=== PATIENT | male | born 1945 | race Asian ===

== ENCOUNTER 2016-03-31 10:16 | Outpatient (CLI) | payer MEDICARE, OTHER ==
[2016-03-31 13:58] LABS: BASOPHILS % (AUTO) 0.6 %; EOSINOPHILS # (AUTO) 0.1 10^3/uL (0.0-0.7); EOSINOPHILS % (AUTO) 1.9 %; HCT - HEMATOCRIT 41.2 % (42.0-52.0); HGB - HEMOGLOBIN 14.1 g/dL (14.0-18.0); LYMPHOCYTES # (AUTO) 1.2 10^3/uL (1.5-3.5); LYMPHOCYTES % (AUTO) 16.1 %; MEAN CORPUSCULAR HEMOGLOBIN 29.5 pg (27.0-31.0); MEAN CORPUSCULAR HGB CONC 34.1 g/dL (32.0-36.0); MEAN CORPUSCULAR VOLUME 86.6 fL (80.0-94.0); MEAN PLATELET VOLUME 7.8 fL (7.4-11.4); MONOCYTES # (AUTO) 0.7 10^3/uL (0.0-1.0); MONOCYTES % (AUTO) 9.4 %; NEUTROPHILS # (AUTO) 5.4 10^3/uL (1.5-6.6); NUCLEATED RED BLOOD CELLS AUTO 0.1 /100WBC; RED BLOOD COUNT 4.76 10^6/uL (4.70-6.10); RED CELL DISTRIBUTION WIDTH 13.7 % (12.0-15.0); UNCORRECTED WHITE BLOOD COUNT 7.4 x10^3/uL; WHITE BLOOD COUNT 7.4 x10^3/uL (4.8-10.8)
[2016-03-31 14:10] LABS: CALCIUM 9.2 mg/dL (8.5-10.3); POTASSIUM 4.1 mmol/L (3.5-5.0)
[2016-03-31 14:35] LABS: HEMOGLOBIN A1C 0.63 g/dL
[2016-03-31 14:45] LABS: ALBUMIN/GLOBULIN RATIO 1.5 (1.0-2.2); BILIRUBIN,TOTAL 0.7 mg/dL (0.2-1.0); CREATININE 1.7 mg/dL (0.6-1.2); TOTAL PROTEIN 7.6 g/dL (6.7-8.2)
== END 2016-03-31 10:17 | disposition home or self-care (01) ==
LOC: LAB.N 10:16
PROVIDERS: ATTEND Nurse Practitioner Gerontology
DX: N18.3 Chronic kidney disease, stage 3 (moderate) (principal); E11.9 Type 2 diabetes mellitus without complications
CPT/HCPCS: 36415; 80053; 83036; 85025

== ENCOUNTER 2016-06-19 10:18 | Outpatient (CLI) | payer MEDICARE, OTHER | END 2016-06-19 10:19 | disposition home or self-care (01) | DX: G47.33 Obstructive sleep apnea (adult) (pediatric) (principal) | CPT/HCPCS: 99213; G0463 ==

== ENCOUNTER 2016-10-30 08:00 | Outpatient (CLI) | payer MEDICARE, OTHER | END 2016-10-30 08:01 | disposition home or self-care (01) | LOC: LAB.N 08:00 | PROVIDERS: ATTEND Nurse Practitioner Gerontology | DX: Z72.89 Other problems related to lifestyle (principal) | CPT/HCPCS: 36415; 86803 ==

== ENCOUNTER 2016-11-09 14:59 | Emergency (ER) | payer MEDICARE, OTHER ==
[2016-11-09 15:07] VITALS: BP 126/84
[2016-11-09] MEDS ORDERED: LIDOCAINE VISCOUS 2% 15 ML UDC MM STA (15:23)
[2016-11-09] MEDS ORDERED: PHENobarb/HYOSCY/ATROPINE/SCOP 5 ML SYRINGE PO STA (15:23)
[2016-11-09] MEDS ORDERED: MAG HYDROX/AL HYDROX/SIMETH 30 ML UDC PO STA (15:23)
[2016-11-09] MEDS ORDERED: SUCRALFATE 1 GM/10 ML UDC PO STA (15:23)
--- NOTE | 2016-11-09 15:28 | ED Physician Documentation ---
PD HPI ABD PAIN - Stated complaint Stated Complaint: ABD PX - Chief complaint Chief Complaint: Abd Pain - History obtained from History obtained from: Patient, Family - History of Present Illness Timing - onset: How many days ago (3) Timing - duration: Days (3) Timing - details: Waxing and waning Pain level max: 7 Pain level now: 3 Quality: Aching, Pain Location: Epigastric Improved by: Other (States improves and he eats for approximately 15 minutes, then worsens again.) Worsened by: Eating Associated symptoms: Nausea, Diarrhea (Had diarrhea the first day 1. Now normal bowel movements). No: Fever, Vomiting, Hematemesis, Constipation, Melena , Hematochezia Similar symptoms before: Has not had sx before Recently seen: Not recently seen Review of Systems Ten Systems: 10 systems reviewed and negative Constitutional: denies: Fever, Chills Ears: denies: Ear pain Nose: denies: Rhinorrhea / runny nose, Congestion Throat: denies: Sore throat Cardiac: denies: Chest pain / pressure Respiratory: denies: Cough, Wheezing : denies: Dysuria Skin: denies: Rash Musculoskeletal: denies: Neck pain, Back pain Neurologic: denies: Headache PD PAST MEDICAL HISTORY - Past Medical History Cardiovascular: Hypertension Respiratory: None, CPAP use Neuro: None Endocrine/Autoimmune: Type 2 diabetes Musculoskeletal: None Derm: Psoriasis - Past Surgical History Past Surgical History: Yes General: Colonoscopy - Present Medications Home Medications: Ambulatory Orders Medication Instructions Recorded Confirmed Aspirin [Aspir 81] 3 tab PO DAILY 09/26/12 08/31/14 Amlodipine Besylate 5 mg PO DAILY 02/26/13 08/31/14 Atorvastatin Calcium [Lipitor] 20 mg PO HS 02/26/13 08/31/14 Cetirizine HCl [Zyrtec] 10 mg PO PRN 02/26/13 08/31/14 Colchicine [Colcrys] 0.6 mg PO DAILY PRN 02/26/13 08/31/14 Febuxostat [Uloric] 40 mg PO 08/31/14 08/31/14 Omeprazole [PriLOSEC] 20 mg PO DAILY #14 capsule 08/31/14 Ranitidine HCl [Zantac] 150 mg PO 08/31/14 08/31/14 Spironolactone 50 mg PO DAILY 08/31/14 08/31/14 Famotidine [Pepcid] 20 mg PO BID #60 tablet 11/09/16 Omeprazole [PriLOSEC] 20 mg PO DAILY #30 capsule 11/09/16 Sucralfate [Carafate] 1 gm PO ACHS #60 tablet 11/09/16 - Allergies Allergies/Adverse Reactions: Allergies Allergy/AdvReac Type Severity Reaction Status Date / Time felodipine [From Plendil] Allergy Intermediate unknown Verified 11/09/16 15:06 lisinopril Allergy Intermediate unknown Verified 11/09/16 15:06 terazosin HCl * [From Hytrin] Allergy Intermediate unknown Verified 11/09/16 15: 06 - Social History Does the pt smoke?: No Smoking Status: Never smoker Does the pt drink ETOH?: No Does the pt have substance abuse?: No - Immunizations Immunizations are current?: Yes PD ED PE NORMAL - Vitals Vital signs reviewed: Yes - General General: Alert and oriented X 3, No acute distress, Well developed/nourished - HEENT HEENT: Moist mucous membranes - Neck Neck: Supple, no meningeal sign - Cardiac Cardiac: RRR, Strong equal pulses - Respiratory Respiratory: No respiratory distress, Clear bilaterally - Abdomen Abdomen: Soft, Non tender, Non distended - Back Back: No CVA TTP, No spinal TTP - Derm Derm: Warm and dry - Neuro Neuro: Alert and oriented X 3 - Psych Psych: Normal mood, Normal affect Results - Vitals Vitals: Oxygen O2 Source Room air - Labs Labs: Laboratory Tests 11/09/16 11/09/16 15:22 15:22 WBC 9.0 RBC 4.90 Hgb 14.3 Hct 42.8 MCV 87.3 MCH 29.1 MCHC 33.3 RDW 13.9 Plt Count 209 MPV 7.1 L Neut # 6.4 Lymph # 1.4 L Kane # 0.9 Eos # 0.2 Baso # 0.1 Absolute Nucleated RBC 0.00 Nucleated RBCs 0.0 Sodium 136 Potassium 3.9 Chloride 107 Carbon Dioxide 20 L Anion Gap 9.0 BUN 27 H Creatinine 1.7 H Estimated GFR (MDRD) 40 L Glucose 108 H Calcium 9.0 Total Bilirubin 0.8 AST 19 ALT 22 Alkaline Phosphatase 67 Total Protein 7.3 Albumin 4.2 Globulin 3.1 Albumin/Globulin Ratio 1.4 Lipase 47 PD MEDICAL DECISION MAKING - ED course Complexity details: reviewed results, re-evaluated patient, considered differential, d/w patient, d/w family ED course: Patient is a 71-year-old male who appears to have gastritis. Symptoms resolved with GI cocktail. He had been seen for this previously in the emergency department and was placed on a PPI, but stopped taking it. Will restart this. No evidence of gallbladder dysfunction. No acute laboratory abnormalities. Patient and family counseled regarding signs and symptoms for which I believe and urgent re-evaluation would be necessary. Patient with good understanding of and agreement to plan and is comfortable going home at this time This document was made in part using voice recognition software. While efforts are made to proofread this document, sound alike and grammatical errors may occur. Departure - Departure Disposition: 01 Home, Self Care Clinical Impression: Gastritis Qualifiers: Gastritis type: unspecified gastritis Chronicity: acute Gastritis bleeding: without bleeding Qualified Code(s): K29.00 - Acute gastritis without bleeding Condition: Good Instructions: ED Gastritis Follow-Up: Edwige Diaz ARNP [Primary Care Provider] - Within 1 week Prescriptions: Sucralfate [Carafate] 1 gm PO ACHS #60 tablet Famotidine [Pepcid] 20 mg PO BID #60 tablet Omeprazole [PriLOSEC] 20 mg PO DAILY #30 capsule Comments: Return if you worsen. Eat a bland diet. Avoid caffeine, fried foods. This should improve over the next few weeks. Follow-up with your doctor to have an endoscopy scheduled. Discharge Date/Time: 11/09/16 16:33
[2016-11-09 15:31] LABS: BASOPHILS # (AUTO) 0.1 10^3/uL (0.0-0.1); BASOPHILS % (AUTO) 0.7 %; EOSINOPHILS # (AUTO) 0.2 10^3/uL (0.0-0.7); EOSINOPHILS % (AUTO) 2.7 %; HCT - HEMATOCRIT 42.8 % (42.0-52.0); HGB - HEMOGLOBIN 14.3 g/dL (14.0-18.0); LYMPHOCYTES # (AUTO) 1.4 10^3/uL (1.5-3.5); LYMPHOCYTES % (AUTO) 15.3 %; MEAN CORPUSCULAR HEMOGLOBIN 29.1 pg (27.0-31.0); MEAN CORPUSCULAR HGB CONC 33.3 g/dL (32.0-36.0); MEAN CORPUSCULAR VOLUME 87.3 fL (80.0-94.0); MEAN PLATELET VOLUME 7.1 fL (7.4-11.4); MONOCYTES # (AUTO) 0.9 10^3/uL (0.0-1.0); MONOCYTES % (AUTO) 10.6 %; NEUTROPHILS # (AUTO) 6.4 10^3/uL (1.5-6.6); NEUTROPHILS % (AUTO) 70.7 %; RED CELL DISTRIBUTION WIDTH 13.9 % (12.0-15.0)
[2016-11-09] MEDS ORDERED: PHENobarb/HYOSCY/ATROPINE/SCOP 5 ML SYRINGE PO ONE (15:36)
[2016-11-09] MEDS ORDERED: LIDOCAINE VISCOUS 2% 15 ML UDC MM ONE (15:37)
[2016-11-09] MEDS ORDERED: MAG HYDROX/AL HYDROX/SIMETH 30 ML UDC ONE (15:37)
[2016-11-09] MEDS ORDERED: SUCRALFATE 1 GM/10 ML UDC ONE (15:37)
[2016-11-09 15:42] LABS: ALBUMIN/GLOBULIN RATIO 1.4 (1.0-2.2); BILIRUBIN,TOTAL 0.8 mg/dL (0.2-1.0); CREATININE 1.7 mg/dL (0.6-1.2); POTASSIUM 3.9 mmol/L (3.5-5.0); TOTAL PROTEIN 7.3 g/dL (6.7-8.2)
[2016-11-09] MEDS ORDERED: SODIUM CHLORIDE FLUSH 0.9% 10 ML SYRINGE IVP ONE (19:52)
== END 2016-11-09 16:33 | disposition home or self-care (01) ==
LOC: ED 14:59
DX: K29.00 Acute gastritis without bleeding (principal); I10 Essential (primary) hypertension; E11.9 Type 2 diabetes mellitus without complications; Z79.82 Long term (current) use of aspirin
CPT/HCPCS: 36415; 80053; 83690; 85025; 99283; A9270

== ENCOUNTER 2016-12-12 06:20 | Day surgery (SDC) | payer MEDICARE, OTHER ==
[2016-12-12] MEDS ORDERED: LACTATED RINGERS 1,000 ML IV ONE (07:03)
[2016-12-12] MEDS ORDERED: fentaNYL 100 MCG/2 ML VIAL IVP ONE (07:34)
[2016-12-12] MEDS ORDERED: MIDAZOLAM 2 MG/2 ML VIAL IVP ONE (07:34)
[2016-12-12 08:22] VITALS: BP 96/58
== END 2016-12-12 06:21 | disposition home or self-care (01) ==
LOC: SDS 06:20
PROVIDERS: ATTEND Surgery
PROC: 0DBL8ZX Excision of Transverse Colon, Via Natural or Artificial Opening Endoscopic, Diagnostic (ICD-10-PCS; principal; 2016-12-12 07:30)
DX: Z12.11 Encounter for screening for malignant neoplasm of colon (principal); D12.2 Benign neoplasm of ascending colon; D12.3 Benign neoplasm of transverse colon; K57.30 Diverticulosis of large intestine without perforation or abscess without bleeding; E11.9 Type 2 diabetes mellitus without complications; Z80.0 Family history of malignant neoplasm of digestive organs; Z79.82 Long term (current) use of aspirin; E78.1 Pure hyperglyceridemia; L40.9 Psoriasis, unspecified; Z85.46 Personal history of malignant neoplasm of prostate
CPT/HCPCS: 45380; J7120

== ENCOUNTER 2017-03-29 10:25 | Outpatient (CLI) | payer MEDICARE, OTHER ==
--- NOTE | 2017-03-29 18:01 | XRAY Report ---
LEFT HIP AND PELVIS: 03/29/2017 CLINICAL INDICATION: Left hip pain. FINDINGS: Frontal view of the hips and pelvis and frogleg lateral view of the left hip demonstrate moderate left hip osteoarthritis. There is no evidence of acute fracture or dislocation. No radiopaque foreign body is seen in the soft tissues. IMPRESSION: MODERATE LEFT HIP OSTEOARTHRITIS. TD: 03/29/2017 17:50
== END 2017-03-29 10:26 | disposition home or self-care (01) ==
LOC: DI.N 10:25
PROVIDERS: ATTEND Nurse Practitioner Gerontology
DX: M16.12 Unilateral primary osteoarthritis, left hip (principal)

== ENCOUNTER 2017-04-26 07:29 | Outpatient (CLI) | payer MEDICARE, OTHER ==
[2017-04-26 13:13] LABS: BASOPHILS # (AUTO) 0.1 10^3/uL (0.0-0.1); BASOPHILS % (AUTO) 0.6 %; EOSINOPHILS # (AUTO) 0.3 10^3/uL (0.0-0.7); EOSINOPHILS % (AUTO) 2.7 %; LYMPHOCYTES # (AUTO) 1.8 10^3/uL (1.5-3.5); MEAN CORPUSCULAR HEMOGLOBIN 28.9 pg (27.0-31.0); MEAN CORPUSCULAR HGB CONC 33.5 g/dL (32.0-36.0); MEAN CORPUSCULAR VOLUME 86.2 fL (80.0-94.0); MEAN PLATELET VOLUME 7.4 fL (7.4-11.4); MONOCYTES # (AUTO) 0.8 10^3/uL (0.0-1.0); MONOCYTES % (AUTO) 8.1 %; NEUTROPHILS # (AUTO) 6.6 10^3/uL (1.5-6.6); NEUTROPHILS % (AUTO) 69.6 %; PLT - PLATELET COUNT 237 10^3/uL (130-450); RED BLOOD COUNT 4.83 10^6/uL (4.70-6.10); RED CELL DISTRIBUTION WIDTH 13.9 % (12.0-15.0); WHITE BLOOD COUNT 9.5 x10^3/uL (4.8-10.8)
[2017-04-26 13:25] LABS: ALBUMIN 4.2 g/dL (3.2-5.5); ALBUMIN/GLOBULIN RATIO 1.3 (1.0-2.2); ALKALINE PHOSPHATASE 60 IU/L (42-121); ALT ALANINE AMINOTRANSFERASE 30 IU/L (10-60); AST ASPARTATE AMINOTRANSFERASE 26 IU/L (10-42); BILIRUBIN,TOTAL 0.6 mg/dL (0.2-1.0); BUN - BLOOD UREA NITROGEN 29 mg/dL (6-20); CALCIUM 8.9 mg/dL (8.5-10.3); CARBON DIOXIDE - CO2 20 mmol/L (21-32); CHLORIDE 102 mmol/L (101-111); CHOL/HDL RATIO 2.9 (<5.0); CHOLESTEROL 114 mg/dL; GFR - MDRD 33 (>89); GLUCOSE 119 mg/dL (70-100); HDL CHOLESTEROL 39 mg/dL; LDL CHOLESTEROL,CALCULATED 46 mg/dL; LDL/HDL RATIO 1.2 (<3.6); SODIUM 135 mmol/L (135-145); TOTAL PROTEIN 7.4 g/dL (6.7-8.2); VLDL CHOLESTEROL 29 mg/dL
[2017-04-26 13:47] LABS: PLATELET ESTIMATE, MANUAL NORMAL (130-450,000) (NORMAL); PLATELET MORPHOLOGY NORMAL APPEARANCE (NORMAL); RBC MORPHOLOGY (MULTIPLE) NORMAL APPEARANCE (NORMAL)
== END 2017-04-26 07:30 | disposition home or self-care (01) ==
LOC: LAB.N 07:29
PROVIDERS: ATTEND Nurse Practitioner Gerontology
DX: I10 Essential (primary) hypertension (principal); E78.5 Hyperlipidemia, unspecified
CPT/HCPCS: 36415; 80053; 80061; 83721; 85025

== ENCOUNTER 2017-08-13 10:10 | Outpatient (CLI) | payer MEDICARE, OTHER | END 2017-08-13 10:11 | disposition home or self-care (01) | LOC: SC 10:10 | PROVIDERS: ATTEND Internal Medicine Pulmonary Disease | DX: G47.33 Obstructive sleep apnea (adult) (pediatric) (principal) | CPT/HCPCS: 99213; G0463; 99212 ==

== ENCOUNTER 2018-03-04 10:00 | Outpatient (CLI) | payer MEDICARE, OTHER | END 2018-03-04 10:01 | disposition home or self-care (01) | LOC: SC 10:00 | PROVIDERS: ATTEND Internal Medicine Pulmonary Disease | DX: G47.33 Obstructive sleep apnea (adult) (pediatric) (principal) | CPT/HCPCS: 99213; G0463; 99212 ==

== ENCOUNTER 2018-03-07 09:51 | Outpatient (CLI) | payer MEDICARE, OTHER ==
[2018-03-07 13:18] LABS: BASOPHILS % (AUTO) 0.5 %; EOSINOPHILS # (AUTO) 0.2 10^3/uL (0.0-0.7); HGB - HEMOGLOBIN 15.1 g/dL (14.0-18.0); LYMPHOCYTES # (AUTO) 1.1 10^3/uL (1.5-3.5); LYMPHOCYTES % (AUTO) 14.1 %; MEAN CORPUSCULAR HEMOGLOBIN 29.7 pg (27.0-31.0); MEAN CORPUSCULAR HGB CONC 33.9 g/dL (32.0-36.0); MEAN CORPUSCULAR VOLUME 87.4 fL (80.0-94.0); MEAN PLATELET VOLUME 7.2 fL (7.4-11.4); MONOCYTES # (AUTO) 0.7 10^3/uL (0.0-1.0); MONOCYTES % (AUTO) 8.6 %; NEUTROPHILS % (AUTO) 74.8 %; PLT - PLATELET COUNT 226 10^3/uL (130-450); RED BLOOD COUNT 5.07 10^6/uL (4.70-6.10); RED CELL DISTRIBUTION WIDTH 13.8 % (12.0-15.0); WHITE BLOOD COUNT 8.1 x10^3/uL (4.8-10.8)
[2018-03-07 13:30] LABS: ALBUMIN 3.6 g/dL (3.2-5.5); ALBUMIN/GLOBULIN RATIO 1.4 (1.0-2.2); ALKALINE PHOSPHATASE 64 IU/L (42-121); ALT ALANINE AMINOTRANSFERASE 31 IU/L (10-60); AST ASPARTATE AMINOTRANSFERASE 21 IU/L (10-42); BILIRUBIN,TOTAL 0.6 mg/dL (0.2-1.0); BUN - BLOOD UREA NITROGEN 12 mg/dL (6-20); CALCIUM 8.9 mg/dL (8.5-10.3); CARBON DIOXIDE - CO2 20 mmol/L (21-32); CHLORIDE 106 mmol/L (101-111); CHOL/HDL RATIO 3.9 (<5.0); CHOLESTEROL 104 mg/dL; CREATININE 1.8 mg/dL (0.6-1.2); GFR - MDRD 37 (>89); GLUCOSE 112 mg/dL (70-100); HDL CHOLESTEROL 27 mg/dL; LDL CHOLESTEROL,CALCULATED 51 mg/dL; LDL/HDL RATIO 1.9 (<3.6); SODIUM 134 mmol/L (135-145); TOTAL PROTEIN 6.1 g/dL (6.7-8.2); VLDL CHOLESTEROL 26 mg/dL
[2018-03-07 13:39] LABS: HB2 TOTAL 16.3 g/dL; HEMOGLOBIN A1C 0.67 g/dL; HEMOGLOBIN A1C % 5.9 % (4.6-6.2)
[2018-03-07 13:58] LABS: PLATELET ESTIMATE, MANUAL NORMAL (130-450,000) (NORMAL); PLATELET MORPHOLOGY 1+ LARGE PLATELETS (NORMAL); RBC MORPHOLOGY (MULTIPLE) NORMAL APPEARANCE (NORMAL)
== END 2018-03-07 23:59 | disposition home or self-care (01) ==
LOC: LAB.N 09:51
PROVIDERS: ATTEND Nurse Practitioner Gerontology
DX: I10 Essential (primary) hypertension (principal); E78.1 Pure hyperglyceridemia; E11.9 Type 2 diabetes mellitus without complications; E78.5 Hyperlipidemia, unspecified
CPT/HCPCS: 36415; 80053; 80061; 83036; 83721; 85025

== ENCOUNTER 2018-08-14 08:00 | Outpatient (CLI) | payer MEDICARE, OTHER ==
[2018-08-14 12:54] LABS: BILIRUBIN,URINE NEGATIVE (NEGATIVE); GLUCOSE, URINE (UA) NEGATIVE (NEGATIVE); KETONES,URINE (UA) NEGATIVE (NEGATIVE); LEUKOCYTE ESTERASE, URINE NEGATIVE (NEGATIVE); NITRITE,URINE NEGATIVE (NEGATIVE); OCCULT BLOOD,URINE NEGATIVE (NEGATIVE); PH,URINE 5.5 PH (5.0-7.5); PROTEIN,URINE NEGATIVE (NEGATIVE); UROBILINOGEN,URINE 0.2 (NORMAL) E.U./dL (NORMAL)
[2018-08-14 13:13] LABS: BACTERIA,URINE Rare /HPF (None Seen); CLARITY,URINE CLEAR (CLEAR); RBC,URINE 0-5 /HPF (0-5); SQUAMOUS EPITHELIAL CELL,UR RARE Squamous (<= Few)
[2018-08-14 13:29] LABS: HB2 TOTAL 13.7 g/dL; HEMOGLOBIN A1C 0.56 g/dL; HEMOGLOBIN A1C % 5.9 % (4.6-6.2)
[2018-08-14 13:35] LABS: ALBUMIN 3.9 g/dL (3.2-5.5); ALBUMIN/GLOBULIN RATIO 1.2 (1.0-2.2); BILIRUBIN,TOTAL 0.9 mg/dL (0.2-1.0); CALCIUM 8.8 mg/dL (8.5-10.3); CREATININE 1.7 mg/dL (0.6-1.2); TOTAL PROTEIN 7.1 g/dL (6.7-8.2); URIC ACID 5.1 mg/dL (2.6-7.2)
== END 2018-08-14 23:59 | disposition home or self-care (01) ==
LOC: LAB.WCP 08:00
PROVIDERS: ATTEND Family Medicine
DX: E11.22 Type 2 diabetes mellitus with diabetic chronic kidney disease (principal); N18.3 Chronic kidney disease, stage 3 (moderate); M41.85 Other forms of scoliosis, thoracolumbar region; M25.78 Osteophyte, vertebrae
CPT/HCPCS: 36415; 72100; 80053; 81001; 83036; 84550

== ENCOUNTER 2018-08-14 10:47 | Outpatient (CLI) | payer MEDICARE, OTHER ==
--- NOTE | 2018-08-14 11:53 | XRAY Report ---
Reason: BACK PAIN Procedure Date: 08/14/2018 Accession Number: [id number] / [id number] Procedure: XRN - Lumbar Spine 2 View CPT Code: FULL RESULT: EXAM: LUMBOSACRAL SPINE RADIOGRAPHY EXAM DATE: 08/14/2018 11:02 AM. CLINICAL HISTORY: Lower back pain for 2 weeks. COMPARISONS: None. TECHNIQUE: 3 views. FINDINGS: Lateral views are degraded by motion and underpenetration. Alignment: There is a minimal S-shaped thoracolumbar scoliosis in the form of a dextroconvex thoracolumbar curvature centered about T12-L1 followed by levoconvex curvature centered about L3-L4. No listhesis is seen. Bones: Five [id number] lumbar vertebral bodies are present. No fractures or bone lesions. Disks: Marginal osteophytosis is seen without significant loss of joint space height. Facets: There is lower lumbar spine facet arthropathy which is poorly visualized due to motion. Sacroiliac Joints: Unremarkable. Soft Tissues: Normal. The visualized bowel gas pattern is normal. IMPRESSION: Degenerative changes including scoliosis as described. RADIA
== END 2018-08-14 10:48 | disposition home or self-care (01) ==
LOC: DI.N 10:47
PROVIDERS: ATTEND Family Medicine
DX: M41.85 Other forms of scoliosis, thoracolumbar region (principal); M25.78 Osteophyte, vertebrae
CPT/HCPCS: 72100

== ENCOUNTER 2018-12-10 10:50 | Outpatient (CLI) | payer MEDICARE, OTHER ==
[2018-12-10 20:40] LABS: CALCIUM 8.7 mg/dL (8.5-10.3); CREATININE 1.6 mg/dL (0.6-1.2)
== END 2018-12-10 23:59 | disposition home or self-care (01) ==
LOC: LAB.N 10:50
PROVIDERS: ATTEND Nurse Practitioner Gerontology
DX: R94.4 Abnormal results of kidney function studies (principal)
CPT/HCPCS: 36415; 80048

== ENCOUNTER 2019-01-14 08:11 | Outpatient (CLI) | payer MEDICARE, OTHER | END 2019-01-14 23:59 | disposition home or self-care (01) | LOC: LAB.N 08:11 | PROVIDERS: ATTEND Urology | DX: C61 Malignant neoplasm of prostate (principal) | CPT/HCPCS: 36415; 84153 ==

== ENCOUNTER 2019-03-21 08:12 | Outpatient (CLI) | payer MEDICARE, OTHER | END 2019-03-21 08:13 | disposition home or self-care (01) | LOC: LAB.N 08:12 | PROVIDERS: ATTEND Nurse Practitioner Gerontology | DX: R94.4 Abnormal results of kidney function studies (principal) | CPT/HCPCS: 36415; 80048 ==

== ENCOUNTER 2019-03-25 08:53 | Outpatient (CLI) | payer MEDICARE, OTHER ==
--- NOTE | 2019-03-25 09:42 | SLEEP CARE CONSULTATION ---
Information from patient questionnaire entered by Cristela Manning. I have reviewed and concur with the information entered by Cristela Manning. This document represents the service I personally performed and the decisions made by me, Quincy Calle MD, [facility]. History of Present Illness Previous diagnosis: Severe, Obstructive Sleep Apnea-Hypopnea Syndrome AHI: 45.4 Reason for follow up: annual Equipment type: CPAP Equipment obtained from: [employer] Prior sleep studies: Yes Year and Where: 2012 [facility] HPI additional information: HPI: Mr. Iqbal was diagnosed to have severe obstructive sleep apnea-hypopnea syndrome and returns today for annual follow up of CPAP therapy. The patient gets his supplies from [employer] and was fitted with a Respironics DreamWear nasal cushion mask. He complains of not getting anything from the durable medical supplier for the past several months. He continues to use the device nightly and all through the night. The compliance report shows that he uses the device 179 nights out of the past 180 nights, averaging 6.2 hours a night. The > 4 hour compliance rate for the past 30 days is 99.4%. He complains of no particular problem with the device such as soreness on the face, dry nose, epistaxis, nasal congestion or headache. He thinks that the pressure of 6 - 9 cmH2O is comfortable. On the CPAP therapy he notices improvement in his sleep quality, and that he wakes up feeling fresher in the morning and more awake/alert during the day. [place] Sleepiness Scale score is 4. His notices no snore at all. The average residual AHI is 2.1; and large leak, 5 seconds a night. CPAP Compliance Data - Data Reviewed with Patient Average duration of nightly device use: 6h 10m Compliance rate %: 93.9 Current pressure setting (cmH2O): 6-9 Humidity setting: off Heated hose setting: off Average residual AHI: 2.1 Average large leak: 5s Subjective Initial [place] Sleepiness Scale score: 5 Current [place] Sleepiness Scale score: 4 Allergies and Home Medications Drug allergies reviewed: Yes (NSAIDS, Colchicine, Lisinopril, Hydrochlorothiazide) Home medication list reviewed: Yes (spironolacton, Flomax, Uloric, Zantac, Lipitor, Zyrtec, losartan, and aspir) Review of Systems Review of systems same as previous: Yes Physical Exam Height: 5 ft 4 in Weight: 209 lb Body Mass Index: 35.9 BMI Classification: Obesity Class 2 Impression and Plan IMPRESSION: 1. Obstructive Sleep Apnea-Hypopnea Syndrome, severe, with the patient continuing to do well on nasal CPAP therapy. He has excellent compliance and significant clinical benefits. The current pressure appears effective and comfortable. Overall, he is very satisfied with treatment and plans to continue with it long-term. Because he is not getting supplies from [employer], I will have him switch to a different durable medical supplier. PLAN: 1. Prescription made for supplies so that he may switch durable medical supplier. 2. Try to lose weight 3. Try ResMed N30i mask. Return for follow up in a year or earlier if there is any problem. I spent 100% of this visit face to face with the patient with greater than 50% of this was spent time counseling the patient and coordination of care.
== END 2019-03-25 08:54 ==
LOC: SC 08:53
PROVIDERS: ATTEND Internal Medicine Pulmonary Disease
DX: G47.33 Obstructive sleep apnea (adult) (pediatric) (principal); E66.9 Obesity, unspecified; Z68.35 Body mass index [BMI] 35.0-35.9, adult
CPT/HCPCS: 99213; G0463; 99212

== ENCOUNTER 2019-07-25 09:10 | Outpatient (CLI) | payer MEDICARE, OTHER ==
[2019-07-25 11:48] LABS: BASOPHILS # (AUTO) 0.1 10^3/uL (0.0-0.1); BASOPHILS % (AUTO) 0.7 %; EOSINOPHILS # (AUTO) 0.1 10^3/uL (0.0-0.7); EOSINOPHILS % (AUTO) 1.4 %; HGB - HEMOGLOBIN 14.2 g/dL (14.0-18.0); MEAN CORPUSCULAR HGB CONC 32.1 g/dL (32.0-36.0); MEAN CORPUSCULAR VOLUME 90.4 fL (80.0-94.0); MEAN PLATELET VOLUME 9.2 fL (7.4-11.4); MONOCYTES # (AUTO) 0.7 10^3/uL (0.0-1.0); MONOCYTES % (AUTO) 7.8 %; NEUTROPHILS # (AUTO) 6.5 10^3/uL (1.5-6.6); NEUTROPHILS % (AUTO) 76.8 %; PLT - PLATELET COUNT 205 10^3/uL (130-450); RED BLOOD COUNT 4.89 10^6/uL (4.70-6.10); RED CELL DISTRIBUTION WIDTH 12.9 % (12.0-15.0); WHITE BLOOD COUNT 8.5 x10^3/uL (4.8-10.8)
[2019-07-25 12:14] LABS: ALBUMIN 4.1 g/dL (3.2-5.5); ALBUMIN/GLOBULIN RATIO 1.3 (1.0-2.2); ALKALINE PHOSPHATASE 61 IU/L (42-121); ALT ALANINE AMINOTRANSFERASE 23 IU/L (10-60); AST ASPARTATE AMINOTRANSFERASE 23 IU/L (10-42); BILIRUBIN,TOTAL 0.8 mg/dL (0.2-1.0); BUN - BLOOD UREA NITROGEN 38 mg/dL (6-20); CALCIUM 8.7 mg/dL (8.5-10.3); CARBON DIOXIDE - CO2 19 mmol/L (21-32); CHLORIDE 108 mmol/L (101-111); CHOL/HDL RATIO 3.3 (<5.0); CHOLESTEROL 140 mg/dL; CREATININE 1.9 mg/dL (0.6-1.2); GLUCOSE 116 mg/dL (70-100); HDL CHOLESTEROL 42 mg/dL; LDL CHOLESTEROL,CALCULATED 70 mg/dL; LDL/HDL RATIO 1.7 (<3.6); SODIUM 136 mmol/L (135-145); TOTAL PROTEIN 7.2 g/dL (6.7-8.2); VLDL CHOLESTEROL 28 mg/dL
[2019-07-25 12:20] LABS: HB2 TOTAL 15.3 g/dL; HEMOGLOBIN A1C 0.6 g/dL; HEMOGLOBIN A1C % 5.7 % (4.6-6.2)
== END 2019-07-25 23:59 | disposition home or self-care (01) ==
LOC: LAB.WCP 09:10
PROVIDERS: ATTEND Nurse Practitioner Family
DX: R94.4 Abnormal results of kidney function studies (principal); E78.5 Hyperlipidemia, unspecified; E11.9 Type 2 diabetes mellitus without complications; I10 Essential (primary) hypertension
CPT/HCPCS: 36415; 80053; 80061; 83036; 83721; 85025

== ENCOUNTER 2019-08-06 08:00 | Outpatient (CLI) | payer MEDICARE, OTHER | END 2019-08-06 23:59 | disposition home or self-care (01) | LOC: LAB.WCP 08:00 | PROVIDERS: ATTEND Urology | DX: C61 Malignant neoplasm of prostate (principal) | CPT/HCPCS: 36415; 84153 ==

== ENCOUNTER 2019-09-04 09:34 | Outpatient (CLI) | payer MEDICARE, OTHER | END 2019-09-04 23:59 | disposition home or self-care (01) | LOC: LAB.WCP 09:34 | PROVIDERS: ATTEND Urology | DX: C61 Malignant neoplasm of prostate (principal) | CPT/HCPCS: 36415; 84153 ==

== ENCOUNTER 2019-10-21 08:00 | Outpatient (CLI) | payer MEDICARE, OTHER ==
[2019-10-21 18:48] LABS: AMYLASE 82 U/L (28-100); LIPASE 52 U/L (22-51)
== END 2019-10-21 23:59 | disposition home or self-care (01) ==
LOC: LAB.WCP 08:00
PROVIDERS: ATTEND Nurse Practitioner Family
DX: R10.9 Unspecified abdominal pain (principal)
CPT/HCPCS: 36415; 82150; 83690

== ENCOUNTER 2020-02-17 07:07 | Outpatient (CLI) | payer MEDICARE, OTHER ==
[2020-02-17 13:28] LABS: HEMOGLOBIN A1c% 5.9 % (4.27-6.07)
[2020-02-17 14:08] LABS: CALCIUM 9.4 mg/dL (8.5-10.3); CREATININE 1.8 mg/dL (0.6-1.2)
== END 2020-02-17 07:08 | disposition home or self-care (01) ==
LOC: DI.N 07:07 → LAB.N 07:08
PROVIDERS: ATTEND Nurse Practitioner Family
DX: E11.22 Type 2 diabetes mellitus with diabetic chronic kidney disease (principal); N18.30 Chronic kidney disease, stage 3 unspecified
CPT/HCPCS: 36415; 80048; 83036

== ENCOUNTER 2020-07-07 08:00 | Outpatient (CLI) | payer MEDICARE, OTHER ==
[2020-07-07 12:07] LABS: BASOPHILS # (AUTO) 0.1 10^3/uL (0.0-0.1); BASOPHILS % (AUTO) 0.6 %; EOSINOPHILS # (AUTO) 0.1 10^3/uL (0.0-0.7); EOSINOPHILS % (AUTO) 1.5 %; HCT - HEMATOCRIT 44.6 % (42.0-52.0); HGB - HEMOGLOBIN 14.1 g/dL (14.0-18.0); LYMPHOCYTES # (AUTO) 1.1 10^3/uL (1.5-3.5); LYMPHOCYTES % (AUTO) 14.3 %; MEAN CORPUSCULAR HEMOGLOBIN 28.9 pg (27.0-31.0); MEAN CORPUSCULAR HGB CONC 31.6 g/dL (32.0-36.0); MEAN CORPUSCULAR VOLUME 91.4 fL (80.0-94.0); MEAN PLATELET VOLUME 8.9 fL (7.4-11.4); MONOCYTES # (AUTO) 0.6 10^3/uL (0.0-1.0); MONOCYTES % (AUTO) 7.5 %; NEUTROPHILS % (AUTO) 74.6 %; PLT - PLATELET COUNT 209 10^3/uL (130-450); RED BLOOD COUNT 4.88 10^6/uL (4.70-6.10); RED CELL DISTRIBUTION WIDTH 13.2 % (12.0-15.0)
[2020-07-07 12:52] LABS: THYROID STIMULATING HORMONE 2.97 uIU/mL (0.34-5.60)
[2020-07-07 13:00] LABS: ALBUMIN 4.3 g/dL (3.2-5.5); ALBUMIN/GLOBULIN RATIO 1.3 (1.0-2.2); ALKALINE PHOSPHATASE 65 IU/L (42-121); ALT ALANINE AMINOTRANSFERASE 24 IU/L (10-60); AST ASPARTATE AMINOTRANSFERASE 19 IU/L (10-42); BILIRUBIN,TOTAL 0.9 mg/dL (0.2-1.0); BUN - BLOOD UREA NITROGEN 29 mg/dL (6-20); CALCIUM 9.2 mg/dL (8.5-10.3); CARBON DIOXIDE - CO2 22 mmol/L (21-32); CHLORIDE 106 mmol/L (101-111); CHOL/HDL RATIO 3.6 (<5.0); CHOLESTEROL 151 mg/dL; CREATININE 1.7 mg/dL (0.6-1.2); CREATININE,URINE 300.4 mg/dL; GFR - MDRD 39 (>89); GLUCOSE 113 mg/dL (70-100); HDL CHOLESTEROL 42 mg/dL; LDL CHOLESTEROL,CALCULATED 70 mg/dL; LDL/HDL RATIO 1.7 (<3.6); MICROALBUM/CREATININE RATIO,UR 1.3 ug/mg (<30.0); MICROALBUMIN,URINE 0.4 mg/dL (0-300.0); POTASSIUM 4.2 mmol/L (3.5-5.0); SODIUM 137 mmol/L (135-145); TOTAL PROTEIN 7.5 g/dL (6.7-8.2); TRIGLYCERIDES 194 mg/dL; VLDL CHOLESTEROL 39 mg/dL
[2020-07-07 13:47] LABS: ESTIMATED AVERAGE GLUCOSE 131 mg/dL (70-100); HEMOGLOBIN A1c% 6.2 % (4.27-6.07)
== END 2020-07-07 23:59 | disposition home or self-care (01) ==
LOC: LAB.WCP 08:00
PROVIDERS: ATTEND Family Medicine
DX: E11.22 Type 2 diabetes mellitus with diabetic chronic kidney disease (principal); N18.30 Chronic kidney disease, stage 3 unspecified; C61 Malignant neoplasm of prostate
CPT/HCPCS: 36415; 80053; 80061; 82043; 82570; 83036; 83721; 84153; 84443; 85025

== ENCOUNTER 2020-08-20 07:00 | Outpatient (CLI) | payer MEDICARE, OTHER | END 2020-08-20 23:59 | disposition home or self-care (01) | LOC: COV 07:00 | PROVIDERS: ATTEND Physician Assistant | DX: Z01.812 Encounter for preprocedural laboratory examination (principal); Z20.822 Contact with and (suspected) exposure to COVID-19 ==

== ENCOUNTER 2020-10-11 09:41 | Outpatient (CLI) | payer MEDICARE, OTHER ==
--- NOTE | 2020-10-11 10:38 | SLEEP CARE CONSULTATION ---
Information from patient questionnaire entered by Jazmín Caro. I have reviewed and concur with the information entered by Jazmín Caro. This document represents the service I personally performed and the decisions made by me, Quincy Calle MD, [facility]. History of Present Illness Service Date and Time: 10/11/2020 0941 Previous diagnosis: Severe, Obstructive Sleep Apnea-Hypopnea Syndrome AHI: 45.4 (in 2012) Reason for follow up: annual (last seen 03/2019) Equipment type: CPAP Equipment obtained from: [employer] Mask style: Nasal Mask brand: Respironics (Dreamwear) Prior sleep studies: Yes Year and Where: 2013 - [facility] Type of Sleep Study: Polysomnography HPI additional information: HPI: Mr. Iqbal was diagnosed to have severe obstructive sleep apnea-hypopnea syndrome and returns today for annual follow up of CPAP therapy. The patient gets his supplies from [employer] and was fitted with a Respironics DreamWear nasal cushion mask. He continues to use the device nightly and all through the night. The compliance report shows that he uses the device 177 nights out of the past 180 nights, averaging 5.3 hours a night. The > 4 hour compliance rate for the past 180 days is 75.6%. He complains of no particular problem with the device such as soreness on the face, dry nose, epistaxis, nasal congestion or headache. He thinks that the pressure of 6 - 9 cmH2O is comfortable. On the CPAP therapy he notices improvement in his sleep quality, and that he wakes up feeling fresher in the morning and more awake/alert during the day. [place] Sleepiness Scale score is 2. His notices no snore at all. The average residual AHI is 2.1; and large leak, 24 seconds a night. CPAP Compliance Data - Data Reviewed with Patient Average duration of nightly device use: 5 hr 19 min Compliance rate %: 75.6 (180 days) Current pressure setting (cmH2O): 6-9 Humidity settin Heated hose settin Average residual AHI: 2.1 Average large leak: 24 sec Subjective Initial [place] Sleepiness Scale score: 16 (in 2007) Current [place] Sleepiness Scale score: 2 Allergies and Home Medications Drug allergies reviewed: Yes Home medication list reviewed: Yes Review of Systems Review of systems same as previous: Yes Physical Exam Height: 5 ft 4 in Weight: 210 lb Body Mass Index: 36.0 BMI Classification: Obese Impression and Plan IMPRESSION: 1. Obstructive Sleep Apnea-Hypopnea Syndrome, severe, with the patient continuing to do well on nasal CPAP therapy. He has excellent compliance and significant clinical benefits. The current pressure appears effective and comfortable. Overall, he is very satisfied with treatment and plans to continue with it long-term. In regards to the recall on all [employer] devices, we discussed the risks and benefits of stopping versus continuing to use the device . In severe cases, it appears the benefits outweigh the risks and it is reasonable to continue until the replace part or machine becomes available. Symptoms that could be related to the recalled sound abatement foam piece are headache, nausea, chest tightness, and upper airway irritation. The patients should also look for debris in the air outlet, water reservoir, and hose. If found, the device should not be used. In [id number] cases, the patients should refrain from using the device. The patient should register the device on [employer]/SRC-update. PLAN: 1. The patient will continue to use his CPAP while waiting for replacement because he cannot sleep without it.. 2. Try to lose weight 3. Try ResMed N30i mask. 4. Return for follow up in a year or earlier if there is any problem. Counseling Topics: Weight control Follow up with Sleep Care in: 1 year Visit Type: In Office Provider Statement: I spent 100% of the Face to Face Visit with the patient with greater than 50% spent counseling the patient and coordination of care.
== END 2020-10-11 09:42 | disposition home or self-care (01) ==
LOC: SC 09:41
PROVIDERS: ATTEND Internal Medicine Pulmonary Disease
DX: G47.33 Obstructive sleep apnea (adult) (pediatric) (principal); E66.9 Obesity, unspecified; Z68.36 Body mass index [BMI] 36.0-36.9, adult
CPT/HCPCS: 99213; G0463; 99212

== ENCOUNTER 2020-10-22 16:34 | Outpatient (CLI) | payer MEDICARE, OTHER | END 2020-10-22 16:35 | disposition home or self-care (01) | LOC: COV 16:34 | PROVIDERS: ATTEND Physician Assistant | DX: Z01.812 Encounter for preprocedural laboratory examination (principal); Z20.822 Contact with and (suspected) exposure to COVID-19 ==

== ENCOUNTER 2020-12-27 08:00 | Outpatient (CLI) | payer MEDICARE, OTHER | END 2020-12-27 23:59 | disposition home or self-care (01) | LOC: LAB.WCP 08:00 | PROVIDERS: ATTEND Family Medicine | DX: M10.9 Gout, unspecified (principal) | CPT/HCPCS: 36415; 84550 ==

== ENCOUNTER 2021-01-03 08:00 | Outpatient (CLI) | payer MEDICARE, OTHER ==
[2021-01-03 12:16] LABS: BASOPHILS % (AUTO) 0.4 %; EOSINOPHILS # (AUTO) 0.2 10^3/uL (0.0-0.7); EOSINOPHILS % (AUTO) 2.2 %; HCT - HEMATOCRIT 41.2 % (42.0-52.0); HGB - HEMOGLOBIN 13.4 g/dL (14.0-18.0); LYMPHOCYTES # (AUTO) 1.1 10^3/uL (1.5-3.5); LYMPHOCYTES % (AUTO) 16.5 %; MEAN CORPUSCULAR HEMOGLOBIN 29.6 pg (27.0-31.0); MEAN CORPUSCULAR HGB CONC 32.5 g/dL (32.0-36.0); MEAN CORPUSCULAR VOLUME 91.2 fL (80.0-94.0); MEAN PLATELET VOLUME 9.3 fL (7.4-11.4); MONOCYTES # (AUTO) 0.6 10^3/uL (0.0-1.0); MONOCYTES % (AUTO) 8.6 %; NEUTROPHILS # (AUTO) 4.8 10^3/uL (1.5-6.6); NEUTROPHILS % (AUTO) 71.4 %; PLT - PLATELET COUNT 206 10^3/uL (130-450); RED BLOOD COUNT 4.52 10^6/uL (4.70-6.10); RED CELL DISTRIBUTION WIDTH 13.3 % (12.0-15.0); WHITE BLOOD COUNT 6.7 x10^3/uL (4.8-10.8)
[2021-01-03 12:27] LABS: ALBUMIN 4.2 g/dL (3.2-5.5); ALBUMIN/GLOBULIN RATIO 1.3 (1.0-2.2); BILIRUBIN,TOTAL 0.5 mg/dL (0.2-1.0); CALCIUM 9.7 mg/dL (8.5-10.3); CREATININE 1.8 mg/dL (0.6-1.2); POTASSIUM 4.3 mmol/L (3.5-5.0); TOTAL PROTEIN 7.5 g/dL (6.7-8.2)
[2021-01-03 12:38] LABS: ESTIMATED AVERAGE GLUCOSE 134 mg/dL (70-100); HEMOGLOBIN A1c% 6.3 % (4.27-6.07)
== END 2021-01-03 23:59 | disposition home or self-care (01) ==
LOC: LAB.WCP 08:00
PROVIDERS: ATTEND Family Medicine
DX: E11.9 Type 2 diabetes mellitus without complications (principal)
CPT/HCPCS: 36415; 80053; 83036; 85025

== ENCOUNTER 2021-05-20 07:10 | Outpatient (CLI) | payer MEDICARE, OTHER ==
[2021-05-20 11:52] LABS: BASOPHILS % (AUTO) 0.6 %; EOSINOPHILS # (AUTO) 0.2 10^3/uL (0.0-0.7); EOSINOPHILS % (AUTO) 2.7 %; HCT - HEMATOCRIT 37.8 % (42.0-52.0); HGB - HEMOGLOBIN 12.6 g/dL (14.0-18.0); LYMPHOCYTES # (AUTO) 0.8 10^3/uL (1.5-3.5); MEAN CORPUSCULAR HEMOGLOBIN 31.2 pg (27.0-31.0); MEAN CORPUSCULAR HGB CONC 33.3 g/dL (32.0-36.0); MEAN CORPUSCULAR VOLUME 93.6 fL (80.0-94.0); MONOCYTES # (AUTO) 0.8 10^3/uL (0.0-1.0); MONOCYTES % (AUTO) 11.7 %; NEUTROPHILS # (AUTO) 4.6 10^3/uL (1.5-6.6); NEUTROPHILS % (AUTO) 71.1 %; PLT - PLATELET COUNT 167 10^3/uL (130-450); RED BLOOD COUNT 4.04 10^6/uL (4.70-6.10); RED CELL DISTRIBUTION WIDTH 12.5 % (12.0-15.0); WHITE BLOOD COUNT 6.4 x10^3/uL (4.8-10.8)
[2021-05-20 12:12] LABS: ESTIMATED AVERAGE GLUCOSE 128 mg/dL (70-100); HEMOGLOBIN A1c% 6.1 % (4.27-6.07)
[2021-05-20 12:27] LABS: ALBUMIN/GLOBULIN RATIO 1.3 (1.0-2.2); ALKALINE PHOSPHATASE 61 IU/L (42-121); ALT ALANINE AMINOTRANSFERASE 20 IU/L (10-60); AST ASPARTATE AMINOTRANSFERASE 19 IU/L (10-42); BILIRUBIN,TOTAL 0.6 mg/dL (0.2-1.0); BUN - BLOOD UREA NITROGEN 34 mg/dL (6-20); CALCIUM 9.3 mg/dL (8.5-10.3); CARBON DIOXIDE - CO2 19 mmol/L (21-32); CHLORIDE 106 mmol/L (101-111); CHOL/HDL RATIO 3.8 (<5.0); CHOLESTEROL 143 mg/dL; CREATININE 1.6 mg/dL (0.6-1.2); GFR - MDRD 42 (>89); GLUCOSE 131 mg/dL (70-100); HDL CHOLESTEROL 38 mg/dL; LDL CHOLESTEROL,CALCULATED 60 mg/dL; LDL/HDL RATIO 1.6 (<3.6); POTASSIUM 4.1 mmol/L (3.5-5.0); SODIUM 136 mmol/L (135-145); TOTAL PROTEIN 7.1 g/dL (6.7-8.2); TRIGLYCERIDES 223 mg/dL; VLDL CHOLESTEROL 45 mg/dL
== END 2021-05-20 07:11 | disposition home or self-care (01) ==
LOC: LAB.N 07:10
PROVIDERS: ATTEND Family Medicine
DX: E11.9 Type 2 diabetes mellitus without complications (principal); R06.09 Other forms of dyspnea
CPT/HCPCS: 36415; 80053; 80061; 83036; 83721; 83880; 85025

== ENCOUNTER 2021-05-20 07:18 | Outpatient (CLI) | payer MEDICARE, OTHER ==
--- NOTE | 2021-05-20 08:16 | XRAY Report ---
PROCEDURE: Chest 2 View X-Ray INDICATIONS: DYSPNEA ON EXERTION TECHNIQUE: 2 view(s) of the chest. COMPARISON: 09/26/2012 chest radiograph FINDINGS: Surgical changes and devices: None. Lungs and pleura: No pleural effusions or pneumothorax. Lungs are clear. Mediastinum: Mediastinal contours are normal. Heart size is normal. Bones and chest wall: No suspicious bony abnormalities. Soft tissues appear unremarkable. IMPRESSION: No acute cardiopulmonary process demonstrated radiographically. Reviewed by: Ammon Morales MD on 05/20/2021 8:15 AM PDT Approved by: Ammon Morales MD on 05/20/2021 8:15 AM PDT Station ID: [id number]
--- NOTE | 2021-05-20 09:08 | XRAY Report ---
PROCEDURE: Lumbar Spine 2 View INDICATIONS: BACK PAIN, LUMBAR; PROSTATE CANCER TECHNIQUE: 3 views of the lumbar spine were acquired. COMPARISON: None. FINDINGS: Bones: 5 [id number] vertebrae are present. There is normal bony alignment. Degenerative endpl ate changes, loss of disc height and bilateral facet arthrosis throughout lumbar spine is seen more p rominent at L4-5 and L5-S1 levels. No vertebral body compression fractures. No suspicious bony lesio ns. Soft tissues: Overlying bowel gas pattern is normal. No suspicious soft tissue calcifications. IMPRESSION: Degenerative disc disease throughout lumbar spine. No acute compression fracture or spon dylolisthesis. No gross suspicious bony lesion. Reviewed by: Mehul Dillard MD on 05/20/2021 9:06 AM PDT Approved by: Mehul Dillard MD on 05/20/2021 9:06 AM PDT Station ID: [id number]
== END 2021-05-20 07:19 | disposition home or self-care (01) ==
LOC: DI.N 07:18
PROVIDERS: ATTEND Family Medicine
DX: R06.09 Other forms of dyspnea (principal); C61 Malignant neoplasm of prostate; M47.816 Spondylosis without myelopathy or radiculopathy, lumbar region; M47.817 Spondylosis without myelopathy or radiculopathy, lumbosacral region; M51.36 Other intervertebral disc degeneration, lumbar region; M51.37 Other intervertebral disc degeneration, lumbosacral region; E11.9 Type 2 diabetes mellitus without complications
CPT/HCPCS: 36415; 80053; 80061; 83036; 83721; 83880; 85025

== ENCOUNTER 2021-10-31 10:28 | Outpatient (CLI) | payer MEDICARE, OTHER ==
[2021-10-31 11:11] VITALS: BP 146/90
--- NOTE | 2021-10-31 11:11 | SLEEP CARE CONSULTATION ---
Information from patient questionnaire entered by Gina Javier. I have reviewed and concur with the information entered by Gina Javier. This document represents the service I personally performed and the decisions made by me, Quincy Calle MD, [facility]. History of Present Illness Service Date and Time: 10/31/2021 1028 Previous diagnosis: Severe, Obstructive Sleep Apnea-Hypopnea Syndrome AHI: 45.4 (in 2012) Reason for follow up: annual (LAST SEEN 10/09) Equipment type: CPAP (DREAMSTATION) Equipment obtained from: [employer] Mask style: Nasal Prior sleep studies: Yes Year and Where: 2012 - [facility] Type of Sleep Study: Polysomnography HPI additional information: Mr. Iqbal was diagnosed to have severe obstructive sleep apnea-hypopnea syndrome and returns today for annual follow up of CPAP therapy. The patient gets his supplies from [email or web address] and was fitted with a Respironics DreamWear nasal cushion mask. He continues to use the device nightly and all through the night. The compliance report shows that he uses the device 359 nights out of the past 365 nights, averaging 4.8 hours a night. The > 4 hour compliance rate for the past 365 days is 76.4%. He complains of no particular problem with the device such as soreness on the face, dry nose, epistaxis, nasal congestion or headache. He thinks that the pressure of 6 - 9 cmH2O is comfortable. On the CPAP therapy he notices improvement in his sleep quality, and that he wakes up feeling fresher in the morning and more awake/alert during the day. [place] Sleepiness Scale score is 2. His notices no snore at all. The average residual AHI is 2.3; and large leak, 42 seconds a night. Sleep Study - Results Type of Sleep Study: Polysomnography Prior sleep studies: Yes Year and Where: 2012 - [facility] CPAP Compliance Data - Data Reviewed with Patient Average duration of nightly device use: 5 hours, 10 minutes, 52 seconds Compliance rate %: 85 (04/28/21 to 10/24/21) Current pressure setting (cmH2O): 6-9 Average residual AHI: 2.6 Subjective Initial [place] Sleepiness Scale score: 16 (in 2007) Allergies and Home Medications Drug allergies reviewed: Yes Home medication list reviewed: Yes Allergy and home medication list: Allergies felodipine [From Plendil] Allergy (Intermediate, Verified 11/09/16 15:06) unknown lisinopril Allergy (Intermediate, Verified 11/09/16 15:06) unknown terazosin HCl * [From Hytrin] Allergy (Intermediate, Verified 11/09/16 15:06) unknown Review of Systems Review of systems same as previous: Yes Physical Exam Vital signs obtained and entered by: JOHAN WIGGINS Blood Pressure: 146/90 (left arm ) Cuff size: long Heart Rate: 77 O2 Saturation: 97 Height: 5 ft 4 in Weight: 222 lb Body Mass Index: 38.0 BMI Classification: Obese Impression and Plan IMPRESSION: 1. Obstructive Sleep Apnea-Hypopnea Syndrome, severe, with the patient continuing to do well on nasal CPAP therapy. He has excellent compliance and significant clinical benefits. The current pressure appears effective and comfortable. Overall, he is very satisfied with treatment and plans to continue with it long-term. He is still waiting for [employer] to replace his recalled [employer] DreamStation autoCPAP. PLAN: 1. The patient will continue to use his CPAP while waiting for replacement because he cannot sleep without it. 2. Try to lose weight 3. Return for follow up in a year or earlier if there is any problem. Follow up with Sleep Care in: 1 year Visit Type: In Office Time Spent with Patient (minutes): 15 Provider Statement: I spent 100% of the Face to Face Visit with the patient with greater than 50% spent counseling the patient and coordination of care.
== END 2021-10-31 10:29 | disposition home or self-care (01) ==
LOC: SC 10:28
PROVIDERS: ATTEND Internal Medicine Pulmonary Disease
DX: G47.33 Obstructive sleep apnea (adult) (pediatric) (principal); E66.9 Obesity, unspecified; Z68.38 Body mass index [BMI] 38.0-38.9, adult
CPT/HCPCS: 99212; G0463

== ENCOUNTER 2022-01-06 07:28 | Outpatient (CLI) | payer MEDICARE, OTHER ==
[2022-01-06 12:11] LABS: BASOPHILS % (AUTO) 0.6 %; EOSINOPHILS # (AUTO) 0.2 10^3/uL (0.0-0.7); EOSINOPHILS % (AUTO) 2.7 %; HCT - HEMATOCRIT 40.4 % (42.0-52.0); HGB - HEMOGLOBIN 12.8 g/dL (14.0-18.0); LYMPHOCYTES # (AUTO) 0.8 10^3/uL (1.5-3.5); MEAN CORPUSCULAR HEMOGLOBIN 28.3 pg (27.0-31.0); MEAN CORPUSCULAR HGB CONC 31.7 g/dL (32.0-36.0); MEAN CORPUSCULAR VOLUME 89.4 fL (80.0-94.0); MEAN PLATELET VOLUME 9.4 fL (7.4-11.4); MONOCYTES # (AUTO) 0.6 10^3/uL (0.0-1.0); MONOCYTES % (AUTO) 9.5 %; NEUTROPHILS # (AUTO) 4.7 10^3/uL (1.5-6.6); NEUTROPHILS % (AUTO) 74.1 %; PLT - PLATELET COUNT 182 10^3/uL (130-450); RED BLOOD COUNT 4.52 10^6/uL (4.70-6.10); RED CELL DISTRIBUTION WIDTH 13.7 % (12.0-15.0); WHITE BLOOD COUNT 6.3 x10^3/uL (4.8-10.8)
[2022-01-06 12:52] LABS: ALBUMIN 4.1 g/dL (3.2-5.5); ALBUMIN/GLOBULIN RATIO 1.3 (1.0-2.2); BILIRUBIN,TOTAL 0.8 mg/dL (0.2-1.0); CALCIUM 9.5 mg/dL (8.5-10.3); CREATININE 1.6 mg/dL (0.6-1.2); POTASSIUM 3.9 mmol/L (3.5-5.0); TOTAL PROTEIN 7.2 g/dL (6.7-8.2)
== END 2022-01-06 07:29 | disposition home or self-care (01) ==
LOC: LAB.N 07:28
PROVIDERS: ATTEND Dermatology
DX: L40.0 Psoriasis vulgaris (principal)
CPT/HCPCS: 36415; 80053; 81599; 85025; 86480

== ENCOUNTER 2022-05-31 20:42 | Emergency (ER) | payer MEDICARE, OTHER ==
--- OUTSIDE RECORDS SUMMARY | 2022-05-31 21:24 | EXTERNAL MEDICAL SUMMARY RPT | Continuity of Care Document ---
:1945 Author Organization [facility] Address [address] [place] [address] Phone Allergies No information. Encounters No information. Functional Status No information. Immunizations No information. Medications No information. Problems date description facility 2022-04-19 07:10 Chronic diastolic (congestive) heart fa [facility] Procedures No information. Results/Labs test date author facility value unit interpret ation Result panel 1 (unknown) (no date) (unknown) (unknown) 1.68 mg/dl (unkn own) (unknown) (no date) (unknown) (unknown) 107 mmol/l (unkn own) (unknown) (no date) (unknown) (unknown) 108 mg/dl (unkn own) (unknown) (no date) (unknown) (unknown) 108 mg/dl (unkn own) (unknown) (no date) (unknown) (unknown) 140 mmol/l (unkn own) (unknown) (no date) (unknown) (unknown) 17.3 (units unknown) (unknown) (unknown) (no date) (unknown) (unknown) 19 mmol/l (unkn own) (unknown) (no date) (unknown) (unknown) 29 mg/dl (unkn own) (unknown) (no date) (unknown) (unknown) 4.2 mmol/l (unkn own) (unknown) (no date) (unknown) (unknown) 42 ml/min (unkn own) (unknown) (no date) (unknown) (unknown) 42 ml/min (unkn own) (unknown) (no date) (unknown) (unknown) 8.8 mg/dl (unkn own) Social History No information. Vital Signs No information.
--- NOTE | 2022-05-31 21:29 | ED Physician Documentation ---
PD HPI ABD PAIN - Stated complaint Stated Complaint: ABD PX - Chief complaint Chief Complaint: Abd Pain - History obtained from History obtained from: Patient - Additional information Additional information: HPI from patient. Patient c/o RUQ and midline upper abdominal pain, onset approximately 1 PM today while at home during moderate activity (unwrapping and then placing a new mattress). Pain is worse with position (abdominal flexion such as sitting up from supine position), palpation. Denies nausea, vomiting. Denies h/o similar symptoms. Pain was waxing and waning when it was present, and patient was concerned due to the persistence of the pain as well as the increasing intensity when he made the decision to come to ED, but the pain has resolved by the time of this H+P Review of Systems Constitutional: denies: Fever, Chills, Sweats Cardiac: reports: Reviewed and negative Respiratory: reports: Reviewed and negative GI: reports: Abdominal Pain. denies: Abdominal Swelling, Nausea, Vomiting, Constipation, Diarrhea PD PAST MEDICAL HISTORY - Past Medical History Cardiovascular: Hypertension, High cholesterol Respiratory: Sleep apnea, CPAP use Endocrine/Autoimmune: Type 2 diabetes : Benign prostate hypertrophy, Renal insuffiency HEENT: None Psych: None Musculoskeletal: Gout Derm: Psoriasis - Past Surgical History Past Surgical History: Yes General: Colonoscopy, Other HEENT: Other - Present Medications Home Medications: Ambulatory Orders Medication Instructions Recorded Confirmed Aspirin [Aspir 81] 3 tab PO DAILY 09/26/12 12/12/16 Amlodipine Besylate 5 mg PO DAILY 02/26/13 12/12/16 Atorvastatin Calcium [Lipitor] 20 mg PO HS 02/26/13 12/12/16 Colchicine [Colcrys] 0.6 mg PO DAILY PRN 02/26/13 12/12/16 Febuxostat [Uloric] 40 mg PO DAILY 08/31/14 12/12/16 Spironolactone 25 mg PO DAILY 08/31/14 12/11/16 Cholecalciferol (Vitamin D3) 2,000 unit PO DAILY 12/11/16 [Vitamin D] Tamsulosin [Flomax] 0.4 mg PO ONCE 12/11/16 12/11/16 - Allergies Allergies/Adverse Reactions: Allergies Allergy/AdvReac Type Severity Reaction Status Date / Time felodipine [From Plendil] Allergy Intermediate unknown Verified 05/31/22 21:08 lisinopril Allergy Intermediate unknown Verified 05/31/22 21:08 terazosin HCl * [From Hytrin] Allergy Intermediate unknown Verified 05/31/22 21:08 - Social History Does the pt smoke?: No Smoking Status: Never smoker Does the pt drink ETOH?: No Does the pt have substance abuse?: No - Immunizations Immunizations are current?: Yes - POLST Patient has POLST: No PD ED PE NORMAL - Vitals Vital signs reviewed: Yes - General General: Alert and oriented X 3, No acute distress, Well developed/nourished - Cardiac Cardiac: RRR, No murmur - Respiratory Respiratory: No respiratory distress, Clear bilaterally - Abdomen Abdomen: Normal bowel sounds, Soft, Non tender, Non distended - Derm Derm: Normal color, Warm and dry, No rash Results - Vitals Vitals: Oxygen O2 Source Room air - EKG (time done) No standard instances EKG releavant findings:: EKG personally interpreted by author of this note. Relevant findings are: Rate: Rate (enter#) (88) Rhythm: NSR [place]: Normal Intervals: Normal [place] QRS: Normal Ischemia: Normal ST segments Other comments: Other comments (PVC) - Labs Labs: Laboratory Tests 05/31/22 05/31/22 05/31/22 21:45 21:51 21:51 WBC 8.9 RBC 4.32 L Hgb 12.6 L Hct 38.4 L MCV 88.9 MCH 29.2 MCHC 32.8 RDW 13.4 Plt Count 158 MPV 9.0 Neut # (Auto) 7.2 H Lymph # (Auto) 0.6 L [place] # (Auto) 0.8 Eos # (Auto) 0.2 Baso # (Auto) 0.0 Absolute Nucleated RBC 0.00 Nucleated RBC % 0.0 Sodium 138 Potassium 3.5 Chloride 110 Carbon Dioxide 20 L Anion Gap 8.0 BUN 35 H Creatinine 1.8 H Estimated GFR (MDRD) 37 L Glucose 122 H Calcium 8.8 Total Bilirubin 0.5 AST 27 ALT 34 Alkaline Phosphatase 68 Troponin I High Sens Total Protein 6.8 Albumin 3.9 Globulin 2.9 Albumin/Globulin Ratio 1.3 Lipase 51 Urine Color YELLOW Urine Clarity CLEAR Urine pH 6.0 Ur Specific [place] 1.015 Urine Protein NEGATIVE Urine Glucose (UA) 500 H Urine Ketones NEGATIVE Urine Occult Blood NEGATIVE Urine Nitrite NEGATIVE Urine Bilirubin NEGATIVE Urine Urobilinogen 0.2 (NORMAL) Ur Leukocyte Esterase NEGATIVE Ur Microscopic Review NOT INDICATED Urine Culture Comments NOT INDICATED 05/31/22 21:51 WBC RBC Hgb Hct MCV MCH MCHC RDW Plt Count MPV Neut # (Auto) Lymph # (Auto) [place] # (Auto) Eos # (Auto) Baso # (Auto) Absolute Nucleated RBC Nucleated RBC % Sodium Potassium Chloride Carbon Dioxide Anion Gap BUN Creatinine Estimated GFR (MDRD) Glucose Calcium Total Bilirubin AST ALT Alkaline Phosphatase Troponin I High Sens 8.2 Total Protein Albumin Globulin Albumin/Globulin Ratio Lipase Urine Color Urine Clarity Urine pH Ur Specific [place] Urine Protein Urine Glucose (UA) Urine Ketones Urine Occult Blood Urine Nitrite Urine Bilirubin Urine Urobilinogen Ur Leukocyte Esterase Ur Microscopic Review Urine Culture Comments - Rads (name of study) RUQ US Relevant Findings:: Prelim report reviewed, See rad report PD Medical Decision Making - ED course Complexity details: reviewed results, re-evaluated patient, considered differential, d/w patient ED course: No concerning findings on tonight's tests including CBC, ER abdominal panel, UA, hs-cTn. Elevated BUN, creatinine are c/w patient's baseline (a few dozen previous results over past 10 years are comparable to tonight's results). RUQ US without diagnostic findings ; possible hepatic steatosis but no evidence of cholelithiasis , cholecystitis. Results d/w patient, return precautions discussed. Etiology of symptoms is not apparent at this time. I advised him to contact his PMD's office to arrange for next available appointment for reevaluation Departure - Departure Disposition: 01 Home, Self Care Clinical Impression: Abdominal pain Condition: Good Instructions: ED Abdominal Pain Unkn Cause Male Comments: There were no concerning or diagnostic findings on tonight's tests, including the blood tests, urinalysis, and the ultrasound of your liver and gallbladder. The cause of your symptoms is not apparent at this time. Follow-up with your primary care provider, next fill appointment, for reevaluation. Certainly, you can return to the emergency department anytime your symptoms recur/worsen, or if you develop new concerning signs/symptoms (such as fever, blood in your stool, vomiting. As we discussed, your kidney function tests were abnormal tonight, but looking at your previous results for at least the past 10 years, tonight's results are without significant change. Discharge Date/Time: 06/01/22 00:57
[2022-05-31 21:57] LABS: BASOPHILS % (AUTO) 0.3 %; EOSINOPHILS # (AUTO) 0.2 10^3/uL (0.0-0.7); EOSINOPHILS % (AUTO) 1.9 %; HCT - HEMATOCRIT 38.4 % (42.0-52.0); HGB - HEMOGLOBIN 12.6 g/dL (14.0-18.0); LYMPHOCYTES # (AUTO) 0.6 10^3/uL (1.5-3.5); LYMPHOCYTES % (AUTO) 6.8 %; MEAN CORPUSCULAR HEMOGLOBIN 29.2 pg (27.0-31.0); MEAN CORPUSCULAR HGB CONC 32.8 g/dL (32.0-36.0); MEAN CORPUSCULAR VOLUME 88.9 fL (80.0-94.0); MONOCYTES # (AUTO) 0.8 10^3/uL (0.0-1.0); MONOCYTES % (AUTO) 9.2 %; NEUTROPHILS # (AUTO) 7.2 10^3/uL (1.5-6.6); NEUTROPHILS % (AUTO) 81.1 %; PLT - PLATELET COUNT 158 10^3/uL (130-450); RED BLOOD COUNT 4.32 10^6/uL (4.70-6.10); RED CELL DISTRIBUTION WIDTH 13.4 % (12.0-15.0); WHITE BLOOD COUNT 8.9 x10^3/uL (4.8-10.8)
[2022-05-31 22:09] LABS: ALBUMIN 3.9 g/dL (3.2-5.5); ALBUMIN/GLOBULIN RATIO 1.3 (1.0-2.2); BILIRUBIN,TOTAL 0.5 mg/dL (0.2-1.0); CALCIUM 8.8 mg/dL (8.5-10.3); CREATININE 1.8 mg/dL (0.6-1.2); POTASSIUM 3.5 mmol/L (3.5-5.0); TOTAL PROTEIN 6.8 g/dL (6.7-8.2)
[2022-05-31 22:09] LABS: BILIRUBIN,URINE NEGATIVE (NEGATIVE); GLUCOSE, URINE (UA) 500 mg/dL (NEGATIVE); KETONES,URINE (UA) NEGATIVE (NEGATIVE); LEUKOCYTE ESTERASE, URINE NEGATIVE (NEGATIVE); NITRITE,URINE NEGATIVE (NEGATIVE); OCCULT BLOOD,URINE NEGATIVE (NEGATIVE); PROTEIN,URINE NEGATIVE (NEGATIVE); UROBILINOGEN,URINE 0.2 (NORMAL) E.U./dL (NORMAL)
[2022-05-31 22:10] LABS: CLARITY,URINE CLEAR (CLEAR)
--- NOTE | 2022-06-01 00:17 | Ultrasound Report ---
PROCEDURE: Abdomen Limited INDICATIONS: abd. pain, tenderness TECHNIQUE: Real-time focused scanning was performed of the abdomen, with image documentation. COMPARISONS: None. FINDINGS: Liver: Upper limits of normal in size measuring 18 cm. Increased echogenicity. Hepatic cyst measurin g 4.5 cm. Portal vein demonstrates hepatopedal flow. Decreased sonographic penetration. Gallbladder: Contracted. No stones. No gallbladder wall thickening. No pericholecystic fluid. Negativ e sonographic Rodriguez sign. Biliary ducts: Intrahepatic bile ducts are non-dilated. Extrahepatic bile duct caliber measures 5 m m. Normal is 6-7 mm or less in diameter, or 10 mm or less post-cholecystectomy. Pancreas: Not well visualized due to overlying bowel gas. Right kidney: Normal in size and echotexture. Right kidney measures 10.8 cm long. No hydronephrosis or nephrolithiasis. No solid masses. No complex renal cystic lesions which require follow-up. IMPRESSION: Limited exam due to acoustic windows and body habitus. No acute cholecystitis. No gallstones. Increased echogenicity of the hepatic parenchyma. This is most commonly seen in hepatic steatosis. Ot her forms of hepatocellular disease could have a similar appearance. Reviewed by: Aris Nick MD on 06/01/2022 12:16 AM PDT Approved by: Aris Nick MD on 06/01/2022 12:16 AM PDT Station ID: [id number]
[2022-06-01 00:44] VITALS: BP 143/59
== END 2022-06-01 00:57 | disposition home or self-care (01) ==
LOC: ED 20:42
DX: R10.11 Right upper quadrant pain (principal); I10 Essential (primary) hypertension; E78.00 Pure hypercholesterolemia, unspecified; Z79.82 Long term (current) use of aspirin; Z79.899 Other long term (current) drug therapy
CPT/HCPCS: 36415; 80053; 81001; 81003; 83690; 84484; 85025; 87086; 93005; 99283; 99284

== ENCOUNTER 2022-06-13 07:15 | Outpatient (CLI) | payer MEDICARE, OTHER ==
[2022-06-13 12:17] LABS: ESTIMATED AVERAGE GLUCOSE 140 mg/dL (70-100); HEMOGLOBIN A1c% 6.5 % (4.27-6.07)
[2022-06-13 12:19] LABS: CHOL/HDL RATIO 3.4 (<5.0); CHOLESTEROL 141 mg/dL; HDL CHOLESTEROL 41 mg/dL; LDL CHOLESTEROL,CALCULATED 55 mg/dL; LDL/HDL RATIO 1.3 (<3.6); TRIGLYCERIDES 227 mg/dL; VLDL CHOLESTEROL 45 mg/dL
== END 2022-06-13 07:16 | disposition home or self-care (01) ==
LOC: LAB.N 07:15
PROVIDERS: ATTEND Nurse Practitioner Family
DX: E78.5 Hyperlipidemia, unspecified (principal); E11.22 Type 2 diabetes mellitus with diabetic chronic kidney disease
CPT/HCPCS: 36415; 80061; 83036; 83721

== ENCOUNTER 2022-10-30 09:18 | Outpatient (CLI) | payer MEDICARE, OTHER ==
--- NOTE | 2022-10-30 10:02 | SLEEP CARE CONSULTATION ---
Information from patient questionnaire entered by Fernando Ballard. I have reviewed and concur with the information entered by Fernando Ballard. This document represents the service I personally performed and the decisions made by me, Quincy Calle MD, [facility]. History of Present Illness Service Date and Time: 10/30/2022917 Previous diagnosis: Severe, Obstructive Sleep Apnea-Hypopnea Syndrome AHI: 45.4 (in 2012) Reason for follow up: annual (LAST SEEN 10/2021) Equipment type: CPAP (DREAMSTATION SD CARD NEEDED) [facility] Mask style: Nasal Prior sleep studies: Yes Year and Where: 2012 - [facility] Sleep Type of Sleep Study: Polysomnography HPI additional information: Mr. Iqbal was diagnosed to have severe obstructive sleep apnea-hypopnea syndrome and returns today for annual follow up of CPAP therapy. The patient gets his supplies from [employer] and was fitted with a Respironics DreamWear nasal cushion mask. He continues to use the [place] Respironics DreamStation autoCPAP nightly and all through the night. This machine is the replacement to his recalled one. The compliance report shows that he uses the device 178 nights out of the past 180 nights, averaging 5.2 hours a night. The > 4 hour compliance rate for the past 180 days is 85%. He complains of no particular problem with the device such as soreness on the face, dry nose, epistaxis, nasal congestion or headache. He thinks that the pressure of 6 - 9 cmH2O is comfortable. On the CPAP therapy he notices improvement in his sleep quality, and that he wakes up feeling fresher in the morning and more awake/alert during the day. [place] Sleepiness Scale score is 8. His notices no snore at all. The average residual AHI is 2.6; and large leak, 48 seconds a night. Sleep Study - Results Type of Sleep Study: Polysomnography Prior sleep studies: Yes Year and Where: 2012 - [facility] Sleep Subjective Initial [place] Sleepiness Scale score: 16 (in 2007) Current [place] Sleepiness Scale score: 8 (10/30/22) Allergies and Home Medications Allergy and home medication list: Allergies felodipine [From Plendil] Allergy (Intermediate, Verified 05/31/22 21:08) unknown lisinopril Allergy (Intermediate, Verified 05/31/22 21:08) unknown terazosin HCl * [From Hytrin] Allergy (Intermediate, Verified 05/31/22 21:08) unknown Review of Systems Review of systems same as previous: Yes Physical Exam Vital signs obtained and entered by: FERNANDO Castellanos MA Blood Pressure: 116/72 (LEFT ARM) Cuff size: long Heart Rate: 98 O2 Saturation: 98 Height: 5 ft 4 in Weight: 218 lb 12.8 oz Body Mass Index: 37.5 BMI Classification: Obese Impression and Plan IMPRESSION: 1. Obstructive Sleep Apnea-Hypopnea Syndrome, severe, with the patient continuing to do well on nasal CPAP therapy. He has excellent compliance and significant clinical benefits. The current pressure appears effective and comfortable. Overall, he is very satisfied with treatment and plans to continue with it long-term. Because the CPAP is now older than the useful life of 5 years, I will order the patient a new one and make it ResMed AirSense 11 set between 6 and 9 cmH2O. PLAN: 1. Prescription made for an autoCPAP, heated humidifier, and related supplies. 2. Try to lose weight 3. Return for follow up in a year or earlier if there is any problem. Continue with device pressure at (cmH2O): 6-9 Prescriptions: Auto CPAP Follow up with Sleep Care in: 1 year Visit Type: In Office Time Spent with Patient (minutes): 15 Provider Statement: I spent 100% of the Face to Face Visit with the patient with greater than 50% spent counseling the patient and coordination of care.
[2022-10-30 10:09] VITALS: BP 116/72; O2SAT 98
== END 2022-10-30 09:19 | disposition home or self-care (01) ==
LOC: SC 09:18
PROVIDERS: ATTEND Internal Medicine Pulmonary Disease
DX: G47.33 Obstructive sleep apnea (adult) (pediatric) (principal); E66.9 Obesity, unspecified; Z68.37 Body mass index [BMI] 37.0-37.9, adult
CPT/HCPCS: 99212; G0463

== ENCOUNTER 2022-11-27 08:31 | Outpatient (CLI) | payer MEDICARE, OTHER ==
[2022-11-27 11:56] LABS: BASOPHILS % (AUTO) 0.5 %; EOSINOPHILS # (AUTO) 0.1 10^3/uL (0.0-0.7); HCT - HEMATOCRIT 37.5 % (42.0-52.0); HGB - HEMOGLOBIN 12.3 g/dL (14.0-18.0); LYMPHOCYTES # (AUTO) 0.8 10^3/uL (1.5-3.5); LYMPHOCYTES % (AUTO) 13.2 %; MEAN CORPUSCULAR HEMOGLOBIN 29.7 pg (27.0-31.0); MEAN CORPUSCULAR HGB CONC 32.8 g/dL (32.0-36.0); MEAN CORPUSCULAR VOLUME 90.6 fL (80.0-94.0); MEAN PLATELET VOLUME 9.5 fL (7.4-11.4); MONOCYTES # (AUTO) 0.7 10^3/uL (0.0-1.0); MONOCYTES % (AUTO) 10.9 %; NEUTROPHILS # (AUTO) 4.4 10^3/uL (1.5-6.6); NEUTROPHILS % (AUTO) 71.9 %; PLT - PLATELET COUNT 200 10^3/uL (130-450); RED BLOOD COUNT 4.14 10^6/uL (4.70-6.10); RED CELL DISTRIBUTION WIDTH 14.2 % (12.0-15.0); WHITE BLOOD COUNT 6.1 x10^3/uL (4.8-10.8)
[2022-11-27 12:26] LABS: ESTIMATED AVERAGE GLUCOSE 140 mg/dL (70-100); HEMOGLOBIN A1c% 6.5 % (4.27-6.07)
[2022-11-27 12:29] LABS: ALBUMIN/GLOBULIN RATIO 1.6 (1.0-2.2); ALKALINE PHOSPHATASE 73 IU/L (42-121); ALT ALANINE AMINOTRANSFERASE 45 IU/L (10-60); AST ASPARTATE AMINOTRANSFERASE 34 IU/L (10-42); BILIRUBIN,TOTAL 0.6 mg/dL (0.2-1.0); BUN - BLOOD UREA NITROGEN 28 mg/dL (6-20); CALCIUM 8.8 mg/dL (8.5-10.3); CARBON DIOXIDE - CO2 24 mmol/L (21-32); CHLORIDE 104 mmol/L (101-111); CHOL/HDL RATIO 3.9 (<5.0); CHOLESTEROL 135 mg/dL; CREATININE 1.7 mg/dL (0.6-1.3); GFR - MDRD 39 (>89); GLUCOSE 125 mg/dL (74-104); HDL CHOLESTEROL 35 mg/dL; LDL CHOLESTEROL,CALCULATED 36 mg/dL; POTASSIUM 3.8 mmol/L (3.5-4.5); SODIUM 138 mmol/L (135-145); TOTAL PROTEIN 6.5 g/dL (6.4-8.9); TRIGLYCERIDES 322 mg/dL (48-352); VLDL CHOLESTEROL 64 mg/dL
== END 2022-11-27 08:32 | disposition home or self-care (01) ==
LOC: LAB.N 08:31
PROVIDERS: ATTEND Nurse Practitioner Family
DX: I12.9 Hypertensive chronic kidney disease with stage 1 through stage 4 chronic kidney disease, or unspecified chronic kidney disease (principal); N18.30 Chronic kidney disease, stage 3 unspecified; E11.22 Type 2 diabetes mellitus with diabetic chronic kidney disease; E78.5 Hyperlipidemia, unspecified
CPT/HCPCS: 36415; 80053; 80061; 83036; 83721; 85025

== ENCOUNTER 2022-12-18 11:46 | Outpatient (CLI) | payer MEDICARE, OTHER ==
--- NOTE | 2022-12-18 16:09 | Ultrasound Report ---
PROCEDURE: Head or Neck Soft Tissue INDICATIONS: THYROID NODULE TECHNIQUE: Real-time scanning was performed of the thyroid gland, with image documentation. COMPARISON: Correlation made to CT angiogram of the chest 11/12/2022 FINDINGS: Right: Thyroid lobe measures 5.2 x 2.5 x 2.7 cm, and is homogeneous in echotexture. Left: Thyroid lobe measures 3.9 x 1.3 x 1.1 cm, and is homogenous in echotexture. Isthmus: 3 mm thick. Nodule number: One Location: Right upper pole Size: 3.7 x 2.0 x 2.7 cm. Composition: Solid. Echogenicity: Isoechoic. Shape: wider than tall (0 points). Margins: Smooth (0 points). Echogenic foci: None (0 points). Total points: 3 ACR TI-RADS category: Mildly suspicious Nodule number: Two Location: Right lower pole Size: 1.6 x 1.5 x 1.6 cm. Composition: Solid. Echogenicity: Isoechoic- hypoechoic. Shape: wider than tall (0 points). Margins: Indistinct. Echogenic foci: None (0 points). Total points: 3-4 ACR TI-RADS category: Mild to moderately suspicious Nodule number: 3 Location: Left superior pole Size: 0.8 x 0.7 x 0.8 cm. Composition: Solid. Echogenicity: Isoechoic. Shape: wider than tall (0 points). Margins: Smooth (0 points). Echogenic foci: None (0 points). Total points: 3 ACR TI-RADS category: Mildly suspicious IMPRESSION: 1. Isoechoic nodular enlargement of the upper portion of the right thyroid lobe. While this is only m ildly suspicious for malignancy, given size criteria, fine-needle aspiration is recommended. 2. Follow-up in one year for other thyroid nodules. ACR TI-RADS definitions and recommendations: TI-RADS 1 (benign): 0 points. FNA not needed. TI-RADS 2 (not suspicious): 2 points. FNA not needed. TI-RADS 3 (mildly suspicious): 3 points. "FNA if 2.5 cm or larger, follow up if 1.5 cm or larger (at 1, 3, and 5 years). TI-RADS 4 (moderately suspicious): 4-6 points. "FNA if 1.5 cm or larger, follow up if 1 cm or larger (at 1, 2, 3, and 5 years). TI-RADS 5 (highly suspicious): 7 points or more. "FNA if 1 cm or larger, follow up if 0.5 cm or larger (every year for 5 years). Reviewed by: Carol Cho MD on 12/18/2022 4:08 PM PDT Approved by: Carol Cho MD on 12/18/2022 4:08 PM PDT Station ID: [id number]
== END 2022-12-18 11:47 | disposition home or self-care (01) ==
LOC: DI 11:46
PROVIDERS: ATTEND Nurse Practitioner Family
DX: E04.2 Nontoxic multinodular goiter (principal)

== ENCOUNTER 2023-01-02 09:45 | Outpatient (CLI) | payer MEDICARE, OTHER ==
[~2023-01-02 09:45] MED LIST: LIDOCAINE-MPF 1% 5 ML VIAL ONE
[2023-01-02] MEDS: LIDOCAINE-MPF 1% 5 ML VIAL TD ONE (11:00)
--- NOTE | 2023-01-02 19:06 | Ultrasound Report ---
PROCEDURE: FNA Bx w/US Gdn 1st Les INDICATIONS: THYROID NODULE TECHNIQUE: The indications, alternatives, benefits, risks, and complications of the procedure were explained to the patient. Written informed consent was obtained and placed in the chart. The area of interest wa s examined sonographically and a site was chosen for ultrasound guided percutaneous sampling. The sk in was prepared and draped in the usual fashion, and anesthetized with 1% lidocaine infiltrated from the skin down to the lesion. Multiple passes were then performed, with contents emptied into an appr [facility] pathology specimen container. A bandage was applied to the area of access at completion of t he study. COMPARISON: 12/18/2022. FINDINGS: Location(s) of lesion(s) sampled: Right upper thyroid lobe nodule [place]: 25 gauge hypodermic needles. Number of passes: 6 Medications: 1% lidocaine for local anaesthesia. Complications: None. IMPRESSION: Successful ultrasound-guided right thyroid nodule fine needle aspiration, with cytology results radha aguirre. Reviewed by: Da Nelson MD on 01/02/2023 7:04 PM PST Approved by: Da Nelson MD on 01/02/2023 7:04 PM PST Station ID: [id number]
== END 2023-01-02 09:46 | disposition home or self-care (01) ==
LOC: DI 09:45
PROVIDERS: ATTEND Nurse Practitioner Family
DX: E04.1 Nontoxic single thyroid nodule (principal)
CPT/HCPCS: 10005

== ENCOUNTER 2023-02-04 01:28 | Emergency (ER) | payer MEDICARE, OTHER ==
[2023-02-04 02:02] LABS: BASOPHILS % (AUTO) 0.3 %; EOSINOPHILS # (AUTO) 0.2 10^3/uL (0.0-0.7); EOSINOPHILS % (AUTO) 2.5 %; HCT - HEMATOCRIT 38.4 % (42.0-52.0); HGB - HEMOGLOBIN 12.8 g/dL (14.0-18.0); LYMPHOCYTES % (AUTO) 13.9 %; MEAN CORPUSCULAR HEMOGLOBIN 29.6 pg (27.0-31.0); MEAN CORPUSCULAR HGB CONC 33.3 g/dL (32.0-36.0); MEAN CORPUSCULAR VOLUME 88.9 fL (80.0-94.0); MEAN PLATELET VOLUME 9.1 fL (7.4-11.4); MONOCYTES # (AUTO) 0.9 10^3/uL (0.0-1.0); MONOCYTES % (AUTO) 12.6 %; NEUTROPHILS % (AUTO) 69.5 %; PLT - PLATELET COUNT 166 10^3/uL (130-450); RED BLOOD COUNT 4.32 10^6/uL (4.70-6.10); RED CELL DISTRIBUTION WIDTH 13.7 % (12.0-15.0); WHITE BLOOD COUNT 7.2 x10^3/uL (4.8-10.8)
--- NOTE | 2023-02-04 02:54 | ED Physician Documentation ---
PD HPI URI - Stated complaint Stated Complaint: SOA,CHEST PX - Chief complaint Chief Complaint: Resp - History obtained from History obtained from: Patient, Family - Additional information Additional information: 77-year-old male with history of hypertension, chronic kidney disease presents by private vehicle from home for nonproductive cough, nasal congestion, chest tightness. Patient states that last time he felt this way he had COVID-19 but "waited too long", and got so bad that he could not even drive himself to the hospital. He has been taking [id number] cough and cold medications as well as Tylenol, which does alleviate his symptoms. Denies chest pain. States that coughing also helps to clear his chest tightness. Review of Systems Constitutional: denies: Fever, Chills Ears: denies: Loss of hearing, Ear pain, Drainage/discharge Nose: reports: Rhinorrhea / runny nose, Congestion. denies: Foreign Body Throat: denies: Dental pain / toothache, Oral lesions / sores, Sore throat Cardiac: denies: Chest pain / pressure, Palpitations, Calf pain Respiratory: reports: Dyspnea, Cough. denies: Wheezing GI: denies: Abdominal Pain, Nausea, Vomiting : denies: Dysuria, Frequency, Hesitancy Skin: denies: Rash, Lesions, Abrasion (s) Musculoskeletal: denies: Neck pain Neurologic: denies: Generalized weakness, Focal weakness, Numbness PD PAST MEDICAL HISTORY - Past Medical History Past Medical History: Yes Cardiovascular: Hypertension, High cholesterol Respiratory: Sleep apnea, CPAP use Neuro: None Endocrine/Autoimmune: Type 2 diabetes GI: Ulcers, Other : Benign prostate hypertrophy, Renal insuffiency HEENT: None Psych: None Musculoskeletal: Gout Derm: Psoriasis - Past Surgical History Past Surgical History: Yes General: Colonoscopy, Other HEENT: Other - Present Medications Home Medications: Ambulatory Orders Medication Instructions Recorded Confirmed Aspirin [Aspir 81] 81 tab PO DAILY 09/26/12 02/04/23 Febuxostat [Uloric] 40 mg PO DAILY 08/31/14 02/04/23 Cholecalciferol (Vitamin D3) 2,000 unit PO DAILY 12/11/16 02/04/23 [Vitamin D] Tamsulosin [Flomax] 0.4 mg PO BID 12/11/16 02/04/23 Atorvastatin Calcium 40 mg PO HS 11/12/22 02/04/23 Cetirizine [ZyrTEC] 10 mg PO DAILY PRN 11/12/22 02/04/23 Clobetasol 0.05% Oint [Temovate 1 applic TOP BID 11/12/22 02/04/23 0.05% Oint] Clotrimazole 1% Cream [Lotrimin 1% 0 gm TOP BID 11/12/22 02/04/23 Cream] Famotidine [Acid-Pep] 20 mg PO DAILY 11/12/22 02/04/23 Febuxostat [Uloric] 40 mg PO DAILY 11/12/22 02/04/23 Furosemide [Lasix] 20 mg PO DAILY 11/12/22 02/04/23 Ketoconazole 2% Cream [Nizoral 2% 1 applic TOP ONCE 11/12/22 02/04/23 Cream] Loperamide [Imodium] 2 mg PO ONCE PRN 11/12/22 02/04/23 Losartan Potassium 25 mg PO DAILY 11/12/22 02/04/23 Losartan [Cozaar] 50 mg PO HS 11/12/22 02/04/23 Metoprolol Succinate [Toprol Xl] 12.5 mg PO BID 11/12/22 02/04/23 Triamcinolone Acetonide 0.1% 1 gm TP ONCE 11/12/22 02/04/23 [Triamcinolone Acetonide] - Allergies Allergies/Adverse Reactions: Allergies Allergy/AdvReac Type Severity Reaction Status Date / Time felodipine [From Plendil] Allergy Intermediate unknown Verified 02/04/23 01:44 lisinopril Allergy Intermediate unknown Verified 02/04/23 01:44 terazosin HCl * [From Hytrin] Allergy Intermediate unknown Verified 02/04/23 01:44 - Social History Does the pt smoke?: No Smoking Status: Never smoker Does the pt drink ETOH?: No Does the pt have substance abuse?: No - Immunizations Immunizations are current?: Yes - POLST Patient has POLST: No PD ED PE NORMAL - Vitals Vital signs reviewed: Yes - General General: Alert and oriented X 3, No acute distress, Well developed/nourished - HEENT HEENT: Atraumatic, PERRL, EOMI - Neck Neck: Supple, no meningeal sign - Cardiac Cardiac: RRR, Strong equal pulses - Respiratory Respiratory: No respiratory distress, Clear bilaterally, Other (no wheezing) - Abdomen Abdomen: Soft, Non tender, Non distended - Derm Derm: Normal color, Warm and dry, No rash - Extremities Extremities: No deformity, No tenderness to palpate, Normal ROM s pain, No edema - Neuro Neuro: Alert and oriented X 3, 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, No motor deficit, Normal speech - Psych Psych: Normal mood, Normal affect Results - Vitals Vitals: Vital Signs - 24 hr 02/04/23 02/04/23 02/04/23 01:30 01:38 02:08 Temperature 36.6 C Heart Rate 78 67 79 Respiratory 16 20 17 Rate Blood Pressure 137/66 H 133/66 H 114/62 O2 Saturation 97 97 97 02/04/23 02/04/23 02/04/23 02:30 03:00 03:14 Temperature 37.0 C Heart Rate 60 61 60 Respiratory 19 18 12 Rate Blood Pressure 114/67 115/61 115/61 O2 Saturation 98 97 97 02/04/23 02/04/23 03:35 03:56 Temperature 36.4 C L Heart Rate 70 73 Respiratory 11 L 17 Rate Blood Pressure 115/62 115/62 O2 Saturation 97 97 Oxygen O2 Source Room air - Labs Labs: Laboratory Tests 02/04/23 02/04/23 02/04/23 01:47 01:47 01:47 WBC 7.2 RBC 4.32 L Hgb 12.8 L Hct 38.4 L MCV 88.9 MCH 29.6 MCHC 33.3 RDW 13.7 Plt Count 166 MPV 9.1 Neut # (Auto) 5.0 Lymph # (Auto) 1.0 L [place] # (Auto) 0.9 Eos # (Auto) 0.2 Baso # (Auto) 0.0 Absolute Nucleated RBC 0.00 Nucleated RBC % 0.0 Sodium 138 Potassium 3.6 Chloride 111 Carbon Dioxide 17 L Anion Gap 10.0 BUN 23 H Creatinine 1.4 H Estimated GFR (MDRD) 49 L Glucose 100 Calcium 9.0 Total Bilirubin 0.5 AST 19 ALT 24 Alkaline Phosphatase 69 Troponin I High Sens 9.0 Total Protein 6.6 Albumin 3.9 Globulin 2.7 Albumin/Globulin Ratio 1.4 Lipase 108 H Nasal Adenovirus (PCR) NOT DETECTED Nasal B. parapertussis DNA (PCR) NOT DETECTED Nasal Coronavir 229E PCR NOT DETECTED Nasal Coronavir HKU1 PCR NOT DETECTED Nasal Coronavir NL63 PCR NOT DETECTED Nasal Coronavir OC43 PCR NOT DETECTED Nasal Enterovir/Rhinovir PCR NOT DETECTED Nasal Influenza B PCR NOT DETECTED Nasal Influenza A PCR NOT DETECTED Nasal Parainfluen 1 PCR NOT DETECTED Nasal Parainfluen 2 PCR NOT DETECTED Nasal Parainfluen 3 PCR NOT DETECTED Nasal Parainfluen 4 PCR NOT DETECTED Nasal RSV (PCR) NOT DETECTED Nasal B.pertussis DNA PCR NOT DETECTED Nasal C.pneumoniae (PCR) NOT DETECTED Andriy Human Metapneumo PCR NOT DETECTED Nasal M.pneumoniae (PCR) NOT DETECTED Nasal SARS-CoV-2 (PCR) NOT DETECTED PD Medical Decision Making - ED course Complexity details: reviewed old records, reviewed results, re-evaluated patient, considered differential, d/w patient ED course: Well-appearing patient with a day and a half of nasal congestion and upper respiratory symptoms. He states he is concerned because last time he had COVID- 19 he ended up having complications from waiting too long to seek medical care. Lungs are clear to auscultation bilaterally, EKG is normal sinus rhythm without concerning findings, hemodynamically stable with normal oxygen saturations. Laboratory work is reviewed, patient has slightly elevated creatinine, consistent with chronic kidney disease. Chest x-ray is negative for acute process. Other laboratory work is within patient's baseline. Respiratory panel is negative. patient reassessed, resting comfortably in ED bed, saturating 97% on room air, vitals otherwise unremarkable. Repeat lung exam is clear bilaterally with no wheezing, rales, rhonchi. Patient counseled on all lab and imaging findings. Recommended conservative management with [id number] cough and cold medications, he may continue to take Tylenol and decongestants as needed for symptoms. Patient expressed understanding of the plan and is in agreement at this time. All questions answered at the time of discharge. Departure - Departure Disposition: 01 Home, Self Care Clinical Impression: Upper respiratory infection Qualifiers: URI type: unspecified viral URI Qualified Code(s): J06.9 - Acute upper respiratory infection, unspecified Condition: Stable Instructions: ED Upper Resp Infec No Abx Tx Forms: PCP List
[2023-02-04 03:05] VITALS: O2SAT 97
[2023-02-04 03:18] LABS: ALBUMIN 3.9 g/dL (3.2-5.5); ALBUMIN/GLOBULIN RATIO 1.4 (1.0-2.2); BILIRUBIN,TOTAL 0.5 mg/dL (0.2-1.0); CREATININE 1.4 mg/dL (0.6-1.3); POTASSIUM 3.6 mmol/L (3.5-4.5); TOTAL PROTEIN 6.6 g/dL (6.4-8.9)
[2023-02-04 03:54] LABS: B. PARAPERTUSSIS- RESP PCR PAN NOT DETECTED; B. PERTUSSIS- RESP PCR PANEL NOT DETECTED; C. PNEUMONIAE- RESP PCR PANEL NOT DETECTED; CORONAVIRUS 229E-RESP PCR NOT DETECTED; CORONAVIRUS HKU1-RESP PCR NOT DETECTED; CORONAVIRUS NL63-RESP PCR NOT DETECTED; CORONAVIRUS OC43-RESP PCR NOT DETECTED; HUMAN METAPNEUMOVIRUS NOT DETECTED; INFLUENZA A- RESP PCR PANEL NOT DETECTED; INFLUENZA B - RESP PCR PANEL NOT DETECTED; M. PNEUMONIAE- RESP PCR PANEL NOT DETECTED; PARAINFLUENZA VIRUS 1 NOT DETECTED; PARAINFLUENZA VIRUS 2 NOT DETECTED; PARAINFLUENZA VIRUS 3 NOT DETECTED; PARAINFLUENZA VIRUS 4 NOT DETECTED; RHINOVIRUS/ENTEROVIRUS NOT DETECTED; RSV- RESP PCR PANEL NOT DETECTED; SARS-CoV-2 -RESP PCR PANEL NOT DETECTED
[2023-02-04 04:01] VITALS: BP 115/62
--- NOTE | 2023-02-04 10:15 | XRAY Report ---
PROCEDURE: Chest 1 View X-Ray INDICATIONS: Chest pain TECHNIQUE: One view of the chest was acquired. COMPARISON: 11/12/2022 FINDINGS: Surgical changes and devices: None. Lungs and pleura: No pleural effusions or pneumothorax. Lungs are clear. Mediastinum: Mediastinal contours appear normal. Heart size is mildly to moderately enlarged. Bones and chest wall: No suspicious bony lesions. Overlying soft tissues appear unremarkable. IMPRESSION: Continued cardiomegaly, with clear lungs. Note: No significant discrepancy from the preliminary report. Reviewed by: Refugio Griggs MD on 02/04/2023 9:13 AM [facility] Approved by: Refugio Griggs MD on 02/04/2023 9:13 AM [facility] Station ID: [id number]
== END 2023-02-04 04:05 | disposition home or self-care (01) ==
LOC: ED 01:28
DX: J06.9 Acute upper respiratory infection, unspecified (principal)
CPT/HCPCS: 36415; 80053; 83690; 84484; 85025; 87633; 93005; 99283; 99284

== ENCOUNTER 2023-05-28 10:33 | Outpatient (CLI) | payer MEDICARE, OTHER ==
[2023-05-28 12:30] LABS: ESTIMATED AVERAGE GLUCOSE 143 mg/dL (70-100); HEMOGLOBIN A1c% 6.6 % (4.27-6.07)
[2023-05-28 12:36] LABS: CALCIUM 9.4 mg/dL (8.5-10.3); CREATININE 1.7 mg/dL (0.6-1.3); POTASSIUM 3.8 mmol/L (3.5-4.5)
== END 2023-05-28 10:34 ==
LOC: LAB.N 10:33
PROVIDERS: ATTEND Nurse Practitioner Family
DX: I12.9 Hypertensive chronic kidney disease with stage 1 through stage 4 chronic kidney disease, or unspecified chronic kidney disease (principal); N18.9 Chronic kidney disease, unspecified; E11.22 Type 2 diabetes mellitus with diabetic chronic kidney disease; K22.4 Dyskinesia of esophagus; R10.13 Epigastric pain; R10.12 Left upper quadrant pain; R10.11 Right upper quadrant pain; R74.8 Abnormal levels of other serum enzymes
CPT/HCPCS: 36415; 80048; 82150; 83036; 83690

== ENCOUNTER 2023-06-10 08:53 | Outpatient (CLI) | payer MEDICARE, OTHER ==
--- NOTE | 2023-06-10 17:23 | Ultrasound Report ---
PROCEDURE: Aorta Duplex Complete INDICATIONS: EPIGASTRIC DISCOMFORT, UQ ABD PAIN TECHNIQUE: Color and pulse Doppler interrogation was performed of the aorta and iliac arterial systems, with eamon ge documentation. COMPARISON: None. FINDINGS: Aorta: 57 cm/sec, with triphasic flow. Right lower extremity: Proximal common iliac artery: 73cm/sec, with biphasic flow. Distal common iliac artery: 117 cm/sec, with biphasic flow. Proximal external iliac artery: 80 cm/sec, with triphasic flow. Distal external iliac artery: 148 cm/sec, with triphasic flow. Common femoral artery: 138 cm/sec, with triphasic flow. Luz-scale imaging description: No visualized plaque. Left lower extremity: Proximal common iliac artery: 90 cm/sec, with biphasic flow. Distal common iliac artery: 110 cm/sec, with biphasic flow. Proximal external iliac artery: 95 cm/sec, with biphasic flow. Distal external iliac artery: 97 cm/sec, with biphasic flow. Common femoral artery: 109 cm/sec, with triphasic flow. Luz-scale imaging description: No visualized plaque. IMPRESSION: No hemodynamically significant stenosis. Reviewed by: Kirstie Jasso MD on 06/10/2023 5:22 PM PDT Approved by: Kirstie Jasso MD on 06/10/2023 5:22 PM PDT Station ID: [id number]
--- NOTE | 2023-06-10 17:27 | Ultrasound Report ---
PROCEDURE: Abdomen Complete INDICATIONS: EPIGASTRIC DISCOMFORT, UQ ABD PAIN TECHNIQUE: Real-time scanning was performed of the abdominal and retroperitoneal organs, with image documentatio n. COMPARISON: Ultrasound abdomen 05/31/2022 FINDINGS: Liver: Liver is enlarged measuring 18.3 cm with steatosis. Foci of decreased echogenicity are presen t within the left lobe the largest measuring 3.3 cm. It previously measured 4.5 cm. Gallbladder: No stones. Wall thickness is at the upper limits of normal measuring 3 mm. Biliary ducts: Intrahepatic bile ducts are non-dilated. Extrahepatic bile duct caliber measures 4 m m. Normal is 6-7 mm or less in diameter, or 10 mm or less post-cholecystectomy. Pancreas: Visualized portions of the pancreas are sonographically normal. Spleen: Spleen is normal in size and homogeneous in echotexture. Kidneys: Kidneys are normal in size and echotexture. Right kidney measures 9.6 cm long; left kidney measures 8.5 cm long. No hydronephrosis or nephrolithiasis. No solid masses. No complex renal cyst ic lesions which require follow-up. Aorta: Visualized aorta is normal in caliber at less than 3 cm. Iliacs: Proximal common iliac arteries are normal in caliber at less than 2.5 cm. IVC: Intrahepatic inferior vena cava is patent. Miscellaneous: No free abdominal fluid. IMPRESSION: Simple hepatic cyst slightly decreased in size. Hepatomegaly with steatosis. Reviewed by: Kirstie Jasso MD on 06/10/2023 5:25 PM PDT Approved by: iKrstie Jasso MD on 06/10/2023 5:25 PM PDT Station ID: [id number]
== END 2023-06-10 08:54 | disposition home or self-care (01) ==
LOC: DI 08:53
PROVIDERS: ATTEND Nurse Practitioner Family
DX: R10.13 Epigastric pain (principal); R10.12 Left upper quadrant pain; R10.11 Right upper quadrant pain; K76.0 Fatty (change of) liver, not elsewhere classified; R16.0 Hepatomegaly, not elsewhere classified; K76.89 Other specified diseases of liver
CPT/HCPCS: 93978

== ENCOUNTER 2023-07-05 07:14 | Outpatient (CLI) | payer MEDICARE, OTHER ==
[2023-07-05 12:11] LABS: BASOPHILS % (AUTO) 0.5 %; EOSINOPHILS # (AUTO) 0.2 10^3/uL (0.0-0.7); EOSINOPHILS % (AUTO) 3.1 %; HCT - HEMATOCRIT 42.2 % (42.0-52.0); HGB - HEMOGLOBIN 13.1 g/dL (14.0-18.0); LYMPHOCYTES % (AUTO) 14.9 %; MEAN CORPUSCULAR HEMOGLOBIN 28.4 pg (27.0-31.0); MEAN CORPUSCULAR VOLUME 91.3 fL (80.0-94.0); MEAN PLATELET VOLUME 9.8 fL (7.4-11.4); MONOCYTES # (AUTO) 0.7 10^3/uL (0.0-1.0); MONOCYTES % (AUTO) 10.4 %; NEUTROPHILS # (AUTO) 4.5 10^3/uL (1.5-6.6); NEUTROPHILS % (AUTO) 69.9 %; PLT - PLATELET COUNT 163 10^3/uL (130-450); RED BLOOD COUNT 4.62 10^6/uL (4.70-6.10); RED CELL DISTRIBUTION WIDTH 14.4 % (12.0-15.0); WHITE BLOOD COUNT 6.4 x10^3/uL (4.8-10.8)
[2023-07-05 12:19] LABS: ALBUMIN/GLOBULIN RATIO 1.5 (1.0-2.2); BILIRUBIN,TOTAL 0.5 mg/dL (0.2-1.0); CALCIUM 9.2 mg/dL (8.5-10.3); CREATININE 1.6 mg/dL (0.6-1.3); POTASSIUM 4.1 mmol/L (3.5-4.5); TOTAL PROTEIN 6.7 g/dL (6.4-8.9); URIC ACID 8.8 mg/dL (4.4-7.6)
== END 2023-07-05 07:15 | disposition home or self-care (01) ==
LOC: LAB.N 07:14
PROVIDERS: ATTEND Nurse Practitioner Family
DX: E11.22 Type 2 diabetes mellitus with diabetic chronic kidney disease (principal); N18.32 Chronic kidney disease, stage 3b; M10.9 Gout, unspecified; K22.4 Dyskinesia of esophagus; R10.13 Epigastric pain; R10.12 Left upper quadrant pain; R10.11 Right upper quadrant pain; R74.8 Abnormal levels of other serum enzymes
CPT/HCPCS: 36415; 80053; 82150; 83690; 84550; 85025

== ENCOUNTER 2023-11-12 13:38 | Outpatient (CLI) | payer MEDICARE, OTHER ==
--- NOTE | 2023-11-12 14:25 | SLEEP CARE CONSULTATION ---
Information from patient questionnaire entered by Darren White. I have reviewed and concur with the information entered by Darren White. This document represents the service I personally performed and the decisions made by me, Quincy Calle MD, [facility]. History of Present Illness Service Date and Time: 11/12/2023 1338 Previous diagnosis: Severe, Obstructive Sleep Apnea-Hypopnea Syndrome AHI: 45.4 (in 2012) Reason for follow up: annual (Last seen 10/2022) Equipment type: CPAP (DREAMSTATION SD CARD NEEDED) Equipment obtained from: [facility]99 Fahrenheit Mask style: Nasal Prior sleep studies: Yes Year and Where: 2012 - [facility] Type of Sleep Study: Polysomnography HPI additional information: Mr. Iqbal was diagnosed to have severe obstructive sleep apnea-hypopnea syndrome and returns today for annual follow up of CPAP therapy. The patient gets his supplies from [facility] and was fitted with a Respironics DreamWear nasal cushion mask. He continues to use the ResMed AirSense 10 nightly and all through the night (he initially received an AirSense 11 but could not figure out hos to set it and shipped it back to [place]). The compliance report shows that he uses the device 73 nights out of the past 73 nights, averaging 5.3 hours a night. The > 4 hour compliance rate for the past 73 days is 92%. He complains of no particular problem with the device such as soreness on the face, dry nose, epistaxis, nasal congestion or headache. He thinks that the pressure of 6 - 9 cmH2O is comfortable. On the CPAP therapy he notices improvement in his sleep quality, and that he wakes up feeling fresher in the morning and more awake/al ert during the day. [place] Sleepiness Scale score is 8. His notices no snore at all. The average residual AHI is 0.7; and average air leak is 20 L/minute. The 90th percentile pressure is 7.4 cmH2O. Sleep Study - Results Type of Sleep Study: Polysomnography Prior sleep studies: Yes Year and Where: 2012 [facility] Sleep CPAP Compliance Data - Data Reviewed with Patient Average duration of nightly device use: 5 h 18 min Compliance rate %: 91 Current pressure setting (cmH2O): 6 - 9 Average residual AHI: 0.7 Subjective Patient concerns: reports: dry mouth, nose, throat Initial [place] Sleepiness Scale score: 16 (in 2008) Current [place] Sleepiness Scale score: 8 (11/12/23) Allergies and Home Medications Drug allergies reviewed: Yes Home medication list reviewed: Yes Allergy and home medication list: Allergies felodipine [From Plendil] Allergy (Intermediate, Verified 02/04/23 01:44) unknown lisinopril Allergy (Intermediate, Verified 02/04/23 01:44) unknown terazosin HCl * [From Hytrin] Allergy (Intermediate, Verified 02/04/23 01:44) unknown Review of Systems Review of systems same as previous: Yes Physical Exam Height: 5 ft 4 in Impression and Plan IMPRESSION: 1. Obstructive Sleep Apnea-Hypopnea Syndrome, severe, with the patient continuing to do well on nasal CPAP therapy. He has excellent compliance and significant clinical benefits. The current pressure appears effective and comfortable. Overall, he is very satisfied with treatment, and plans to continue with it long-term. No adjustment is necessary today. PLAN: 1. Continue with autoCPAP set at 6 9 cmH2O. 2. Try to lose weight 3. Return for follow up in a year or earlier if there is any problem. Counseling Topics: Weight control Follow up with Sleep Care in: 1 year Follow up recommended for: Weight management Visit Type: In Office Time Spent with Patient (minutes): 15 Provider Statement: I spent 100% of the Face to Face Visit with the patient with greater than 50% spent counseling the patient and coordination of care.
== END 2023-11-12 13:39 | disposition home or self-care (01) ==
LOC: SC 13:38
PROVIDERS: ATTEND Internal Medicine Pulmonary Disease
DX: G47.33 Obstructive sleep apnea (adult) (pediatric) (principal)
CPT/HCPCS: 99212; G0463